=== PATIENT | male | born 1965 | race Caucasian/White ===

== ENCOUNTER 2016-09-22 00:26 | Emergency (ER) | payer MEDICARE, MEDICAID ==
[~2016-09-22] VITALS: Ht 177.8 cm; Wt 110.0 kg
[~2016-09-22 00:26] MED LIST: ADVIL200 MG OR; ALBUTEROL SUL0.083 % IN; ATROVENT I0.5 MG/VIA IN; CIPROFLOXACN500 MG PO; COMBIVENT; COMBIVENT IN; DOXYCYCL HYC100 MG PO; DUONEB INH; EQ PAIN RELIEV500 MG PO; FLEXERIL10 MG PO; FLEXIRIL; LEVAQUIN500 MG PO; LEVAQUIN750 MG PO; LIDODERM5 % EX; MEDDOSEPAK PO; MELOXICAM7.5 MG PO; MOBIC7.5 MG PO; MUCINEX PO; MULTIVITAMI1 PO; PREDNISONE10 MG PO; PREDNISONE20 MG PO; PREVACID30 M1 OR; PRILOSEC20 MG/CAP PO; PROAIR HFA IN; REGLAN10 MG OR; SUDAFED PO; ULTRAM50 M1 PO; VENTOLIN HF1 IN; VENTOLIN HFA IN; ZANAFLEX2 MG PO; ZITHROMAX500 MG PO; [UNRECOGNIZED DRUG - OTHER] OR
[2016-09-22 01:52] LABS: HEMATOCRIT 43.4 % (39.0-50.0); HEMOGLOBIN 14.4 g/dl (14.0-18.0); IMMATURE GRANULOCYTES 0.4 % (0.0-1.0); MEAN CELL VOLUME 99.8 fL CALC (80.0-100.0); MEAN CORPUSCULAR HGB 33.1 pG CALC (26.0-32.0); MEAN CORPUSCULAR HGB CONC 33.2 g/L CALC (32.0-36.0); NEUT# 5.85 thou/uL (1.82-7.42); RED BLOOD COUNT 4.35 mill/uL (4.70-6.10); RED CELL DISTRI WIDTH 13.2 % (11.5-15.5)
[2016-09-22 02:06] LABS: INFLUENZA A NONE DETECTED (NONE DETECT); INFLUENZA B NONE DETECTED (NONE DETECT)
[2016-09-22 02:08] LABS: ALBUMIN 3.7 g/dL (3.2-5.0); ALKALINE PHOSPHATASE 99 u/l (38-126); ANION GAP 16 (6-22 (CALC)); BILIRUBIN, TOTAL 0.2 mg/dL (0.0-1.4); BUN 18 mg/dL (9-20); BUN/CREATININE RATIO 17 (12-20 (CALC)); CALCIUM 9.6 mg/dL (8.4-10.2); CARBON DIOXIDE 27 mmol/l (22-30); CHLORIDE 106 mmol/l (95-108); CREATININE 1.1 mg/dL (0.7-1.3); GFR > 60 ML/MIN (>=60 (CALC)); GFR FOR AFR.AMER. > 60 ML/MIN (>=60 (CALC)); GLUCOSE 155 mg/dL (75-110); POTASSIUM 3.6 mmol/l (3.5-5.1); SGOT/AST 30 u/l (17-59); SGPT/ALT 43 u/l (21-72); SODIUM 145 mmol/l (137-146); TOTAL PROTEIN 6.4 g/dL (6.3-8.2)
[2016-09-22 02:19] LABS: MYOGLOBIN 88 ng/mL (0 - 121)
[2016-09-22 03:21] LABS: URINE BILIRUBIN - DIPSTICK NEGATIVE (NEGATIVE); URINE BLOOD DIPSTICK NEGATIVE (NEGATIVE); URINE CLARITY CLEAR; URINE COLOR YELLOW; URINE GLUCOSE - DIPSTICK NEGATIVE (NEGATIVE); URINE KETONE NEGATIVE (NEGATIVE); URINE LEUK ESTERASE NEGATIVE (NEGATIVE); URINE NITRITE - DIPSTICK NEGATIVE (Negative); URINE PROTEIN - DIPSTICK NEGATIVE (NEG-TRACE); URINE SPECIFIC GRAVITY <=1.005; URINE UROBILINOGEN - DIPSTICK 0.2 E.U./dL (0.2)
[2016-09-22 04:26] VITALS: BP 123/76
[2016-09-22] MEDS ORDERED: Levaquin PO (04:39)
== END 2016-09-22 05:00 | disposition home or self-care (01) ==
LOC: ED 00:26
PROVIDERS: Emergency Medicine
DX: J44.1 Chronic obstructive pulmonary disease with (acute) exacerbation (principal); R06.02 Shortness of breath

== ENCOUNTER 2016-12-12 21:10 | Emergency (ER) | payer MEDICARE, MEDICAID ==
[~2016-12-12] VITALS: Ht 177.8 cm; Wt 100.0 kg
[~2016-12-12 21:10] MED LIST changes: +Levaquin PO
[2016-12-12 21:56] LABS: HEMATOCRIT 44.5 % (39.0-50.0); IMMATURE GRANULOCYTES 0.7 % (0.0-1.0); MEAN CELL VOLUME 98.5 fL CALC (80.0-100.0); MEAN CORPUSCULAR HGB 33.2 pG CALC (26.0-32.0); MEAN CORPUSCULAR HGB CONC 33.7 g/L CALC (32.0-36.0); NEUT# 6.06 thou/uL (1.82-7.42); RED BLOOD COUNT 4.52 mill/uL (4.70-6.10)
[2016-12-12 22:10] LABS: ALBUMIN 4.2 g/dL (3.2-5.0); ALKALINE PHOSPHATASE 95 u/l (38-126); ANION GAP 14 (6-22 (CALC)); BILIRUBIN, TOTAL 0.3 mg/dL (0.0-1.4); BUN 18 mg/dL (9-20); BUN/CREATININE RATIO 14 (12-20 (CALC)); CALCIUM 9.2 mg/dL (8.4-10.2); CARBON DIOXIDE 27 mmol/l (22-30); CHLORIDE 103 mmol/l (95-108); CREATININE 1.3 mg/dL (0.7-1.3); GFR 58 ML/MIN (>=60 (CALC)); GFR FOR AFR.AMER. > 60 ML/MIN (>=60 (CALC)); GLUCOSE 145 mg/dL (75-110); POTASSIUM 3.7 mmol/l (3.5-5.1); SGOT/AST 33 u/l (17-59); SGPT/ALT 47 u/l (21-72); SODIUM 140 mmol/l (137-146); TOTAL PROTEIN 6.9 g/dL (6.3-8.2)
[2016-12-12 22:22] LABS: MYOGLOBIN 101 ng/mL (0 - 121)
[2016-12-12 22:29] LABS: BARBITURATES NEGATIVE (NEGATIVE); COCAINE NEGATIVE (NEGATIVE); METHADONE NEGATIVE (NEGATIVE); OXCYCODONE NEGATIVE (NEGATIVE); TETRAHYDROCANNABIONOL NEGATIVE (NEGATIVE); TRICYLIC ANTIDEPRESSANTS NEGATIVE (NEGATIVE); URINE BILIRUBIN - DIPSTICK NEGATIVE (NEGATIVE); URINE BLOOD DIPSTICK NEGATIVE (NEGATIVE); URINE CLARITY CLEAR; URINE COLOR YELLOW; URINE GLUCOSE - DIPSTICK NEGATIVE (NEGATIVE); URINE KETONE NEGATIVE (NEGATIVE); URINE LEUK ESTERASE NEGATIVE (NEGATIVE); URINE NITRITE - DIPSTICK NEGATIVE (Negative); URINE PROTEIN - DIPSTICK NEGATIVE (NEG-TRACE); URINE UROBILINOGEN - DIPSTICK 0.2 E.U./dL (0.2)
[2016-12-13 01:45] VITALS: BP 135/98
== END 2016-12-13 01:45 | disposition home or self-care (01) ==
LOC: ED 21:10
PROVIDERS: Emergency Medicine
DX: R07.89 Other chest pain (principal); I10 Essential (primary) hypertension; R06.02 Shortness of breath; J44.9 Chronic obstructive pulmonary disease, unspecified; R50.9 Fever, unspecified

== ENCOUNTER 2017-01-12 12:16 | Emergency (ER) | payer MEDICARE, MEDICAID ==
[~2017-01-12] VITALS: Ht 177.8 cm; Wt 115.0 kg
[2017-01-12] MEDS ORDERED: MELOXICAM7.5 MG PO (12:29)
[2017-01-12] MEDS ORDERED: TRAMADOL HCL50 MG PO (12:29)
[2017-01-12 12:54] LABS: HEMOGLOBIN 15.9 g/dl (14.0-18.0); IMMATURE GRANULOCYTES 0.7 % (0.0-1.0); MEAN CELL VOLUME 98.4 fL CALC (80.0-100.0); MEAN CORPUSCULAR HGB 32.6 pG CALC (26.0-32.0); MEAN CORPUSCULAR HGB CONC 33.1 g/L CALC (32.0-36.0); NEUT# 5.46 thou/uL (1.82-7.42); RED BLOOD COUNT 4.88 mill/uL (4.70-6.10)
[2017-01-12 13:04] LABS: ALBUMIN 4.4 g/dL (3.2-5.0); ALKALINE PHOSPHATASE 89 u/l (38-126); ANION GAP 16 (6-22 (CALC)); BILIRUBIN, TOTAL 0.4 mg/dL (0.0-1.4); BUN 16 mg/dL (9-20); BUN/CREATININE RATIO 14 (12-20 (CALC)); CALCIUM 9.5 mg/dL (8.4-10.2); CARBON DIOXIDE 26 mmol/l (22-30); CHLORIDE 106 mmol/l (95-108); CREATININE 1.2 mg/dL (0.7-1.3); GFR > 60 ML/MIN (>=60 (CALC)); GFR FOR AFR.AMER. > 60 ML/MIN (>=60 (CALC)); GLUCOSE 137 mg/dL (75-110); POTASSIUM 3.6 mmol/l (3.5-5.1); SGOT/AST 25 u/l (17-59); SGPT/ALT 44 u/l (21-72); SODIUM 143 mmol/l (137-146); TOTAL PROTEIN 7.5 g/dL (6.3-8.2)
[2017-01-12 13:16] LABS: MYOGLOBIN 93 ng/mL (0 - 121)
[2017-01-12 13:49] VITALS: BP 112/61
[2017-01-12] MEDS ORDERED: AFRIN 12 HOUR0.05 % (13:49)
[2017-01-12] MEDS ORDERED: PREDNISONE50 MG PO (13:49)
[2017-01-12] MEDS ORDERED: ZITHROMAX250 MG PO (13:49)
[2017-01-12] MEDS ORDERED: ALBUTEROL SUL0.083 % IN (13:49)
[2017-01-12] MEDS ORDERED: VENTOLIN HFA IN (13:49)
== END 2017-01-12 13:56 | disposition home or self-care (01) ==
LOC: ED 12:16
PROVIDERS: Emergency Medicine
DX: J44.9 Chronic obstructive pulmonary disease, unspecified (principal); F17.210 Nicotine dependence, cigarettes, uncomplicated; R06.02 Shortness of breath

== ENCOUNTER 2017-01-14 22:56 | Observation (INO) | payer MEDICARE, MEDICAID ==
[~2017-01-14] VITALS: Ht 180.3 cm; Wt 98.4 kg
[~2017-01-14 22:56] MED LIST changes: +AFRIN 12 HOUR0.05 %; +PREDNISONE50 MG PO; +TRAMADOL HCL50 MG PO; +ZITHROMAX250 MG PO
[2017-01-15 00:06] LABS: HEMATOCRIT 44.2 % (39.0-50.0); HEMOGLOBIN 14.5 g/dl (14.0-18.0); IMMATURE GRANULOCYTES 0.9 % (0.0-1.0); MEAN CELL VOLUME 99.1 fL CALC (80.0-100.0); MEAN CORPUSCULAR HGB 32.5 pG CALC (26.0-32.0); MEAN CORPUSCULAR HGB CONC 32.8 g/L CALC (32.0-36.0); NEUT# 10.14 thou/uL (1.82-7.42); RED BLOOD COUNT 4.46 mill/uL (4.70-6.10); RED CELL DISTRI WIDTH 13.2 % (11.5-15.5)
[2017-01-15 00:16] LABS: ALBUMIN 4.1 g/dL (3.2-5.0); ALKALINE PHOSPHATASE 72 u/l (38-126); ANION GAP 16 (6-22 (CALC)); BILIRUBIN, TOTAL 0.2 mg/dL (0.0-1.4); BUN 24 mg/dL (9-20); BUN/CREATININE RATIO 18 (12-20 (CALC)); CALCIUM 9.5 mg/dL (8.4-10.2); CARBON DIOXIDE 26 mmol/l (22-30); CHLORIDE 106 mmol/l (95-108); CREATININE 1.3 mg/dL (0.7-1.3); GFR 58 ML/MIN (>=60 (CALC)); GFR FOR AFR.AMER. > 60 ML/MIN (>=60 (CALC)); GLUCOSE 98 mg/dL (75-110); POTASSIUM 3.7 mmol/l (3.5-5.1); SGOT/AST 33 u/l (17-59); SGPT/ALT 46 u/l (21-72); SODIUM 144 mmol/l (137-146); TOTAL PROTEIN 6.8 g/dL (6.3-8.2)
[2017-01-15 00:28] LABS: MYOGLOBIN 222 ng/mL (0 - 121)
[2017-01-15 04:10] VITALS: BP 141/86
[2017-01-15 04:59] LABS: URINE BILIRUBIN - DIPSTICK NEGATIVE (NEGATIVE); URINE BLOOD DIPSTICK NEGATIVE (NEGATIVE); URINE CLARITY CLEAR; URINE COLOR YELLOW; URINE GLUCOSE - DIPSTICK NEGATIVE (NEGATIVE); URINE KETONE NEGATIVE (NEGATIVE); URINE LEUK ESTERASE NEGATIVE (NEGATIVE); URINE NITRITE - DIPSTICK NEGATIVE (Negative); URINE PROTEIN - DIPSTICK NEGATIVE (NEG-TRACE); URINE SPECIFIC GRAVITY <=1.005; URINE UROBILINOGEN - DIPSTICK 0.2 E.U./dL (0.2)
[2017-01-15 05:01] LABS: BARBITURATES NEGATIVE (NEGATIVE); COCAINE NEGATIVE (NEGATIVE); METHADONE NEGATIVE (NEGATIVE); OXCYCODONE NEGATIVE (NEGATIVE); TETRAHYDROCANNABIONOL NEGATIVE (NEGATIVE); TRICYLIC ANTIDEPRESSANTS NEGATIVE (NEGATIVE)
[2017-01-15 08:28] VITALS: BP 131/82
[2017-01-15 11:21] VITALS: BP 128/82
[2017-01-15] MEDS ORDERED: ANTIVERT12.5 MG PO (12:58)
== END 2017-01-15 13:51 | disposition home or self-care (01) ==
LOC: ED 22:56 → ED-I 01-15 00:40 → ED 01-15 01:34 → MS2 01-15 01:35 → ICU 01-15 01:35 → MS2 01-15 07:35
PROVIDERS: Emergency Medicine; ADMIT Internal Medicine; ATTEND Internal Medicine
DX: R55 Syncope and collapse (principal); J44.1 Chronic obstructive pulmonary disease with (acute) exacerbation; G89.29 Other chronic pain; M54.9 Dorsalgia, unspecified; Z87.891 Personal history of nicotine dependence

== ENCOUNTER 2017-04-02 22:04 | Emergency (ER) | payer MEDICARE, MEDICAID ==
[~2017-04-02] VITALS: Ht 180.3 cm; Wt 94.4 kg
[~2017-04-02 22:04] MED LIST changes: +ADVAIR HF1 IN; +ANTIVERT PO; +ANTIVERT12.5 MG PO; +FIORICET PO; +LOSARTAN POT25 MG PO
[2017-04-02] MEDS ORDERED: FLONASE AL50 MCG/ACT (22:22)
[2017-04-02] MEDS ORDERED: SYMBICORT1 AE1 IN (22:23)
[2017-04-02 22:59] LABS: HEMATOCRIT 42.9 % (39.0-50.0); IMMATURE GRANULOCYTES 0.7 % (0.0-1.0); MEAN CELL VOLUME 99.5 fL CALC (80.0-100.0); MEAN CORPUSCULAR HGB 32.5 pG CALC (26.0-32.0); MEAN CORPUSCULAR HGB CONC 32.6 g/L CALC (32.0-36.0); NEUT# 7.2 thou/uL (1.82-7.42); RED BLOOD COUNT 4.31 mill/uL (4.70-6.10); RED CELL DISTRI WIDTH 13.2 % (11.5-15.5)
--- NOTE | 2017-04-02 23:01 | NUR ---
BREATHING TREATMENT GIVEN. BREATHING TECH. FOR GOOD DEPOSITION TO THE LUNGS.
[2017-04-02 23:22] LABS: ALBUMIN 3.7 g/dL (3.2-5.0); ALKALINE PHOSPHATASE 81 u/l (38-126); ANION GAP 14 (6-22 (CALC)); BILIRUBIN, TOTAL 0.4 mg/dL (0.0-1.4); BUN 17 mg/dL (9-20); BUN/CREATININE RATIO 17 (12-20 (CALC)); CALCIUM 9.2 mg/dL (8.4-10.2); CARBON DIOXIDE 26 mmol/l (22-30); CHLORIDE 107 mmol/l (95-108); GFR > 60 ML/MIN (>=60 (CALC)); GFR FOR AFR.AMER. > 60 ML/MIN (>=60 (CALC)); GLUCOSE 175 mg/dL (75-110); POTASSIUM 3.8 mmol/l (3.5-5.1); SGOT/AST 28 u/l (17-59); SGPT/ALT 36 u/l (21-72); SODIUM 144 mmol/l (137-146); TOTAL PROTEIN 6.2 g/dL (6.3-8.2)
[2017-04-02 23:33] LABS: MYOGLOBIN 72 ng/mL (0 - 121)
[2017-04-03] MEDS ORDERED: MEDDOSEPAK PO (00:07)
[2017-04-03] MEDS ORDERED: ZITHROMAX250 MG PO (00:07)
[2017-04-03] MEDS ORDERED: VENTOLIN HFA IN (00:07)
[2017-04-03 00:13] VITALS: BP 113/54
== END 2017-04-03 00:20 | disposition home or self-care (01) ==
LOC: ED 22:04
PROVIDERS: Emergency Medicine
DX: J44.1 Chronic obstructive pulmonary disease with (acute) exacerbation (principal); R06.02 Shortness of breath

== ENCOUNTER 2017-04-21 22:03 | Observation (INO) | payer MEDICARE ==
[~2017-04-21] VITALS: Ht 177.8 cm; Wt 93.0 kg
[~2017-04-21 22:03] MED LIST changes: +FLONASE AL50 MCG/ACT; +SYMBICORT1 AE1 IN
[2017-04-21 23:08] LABS: HEMATOCRIT 41.6 % (39.0-50.0); HEMOGLOBIN 13.7 g/dl (14.0-18.0); IMMATURE GRANULOCYTES 0.5 % (0.0-1.0); MEAN CELL VOLUME 99.8 fL CALC (80.0-100.0); MEAN CORPUSCULAR HGB 32.9 pG CALC (26.0-32.0); MEAN CORPUSCULAR HGB CONC 32.9 g/L CALC (32.0-36.0); NEUT# 5.9 thou/uL (1.82-7.42); RED BLOOD COUNT 4.17 mill/uL (4.70-6.10); RED CELL DISTRI WIDTH 13.3 % (11.5-15.5)
[2017-04-21 23:27] LABS: ACT PARTIAL THROMBO TIME 25.7 SECONDS (20.0-32.5); ALBUMIN 3.7 g/dL (3.2-5.0); ALKALINE PHOSPHATASE 83 u/l (38-126); ANION GAP 13 (6-22 (CALC)); BILIRUBIN, TOTAL 0.3 mg/dL (0.0-1.4); BUN 15 mg/dL (9-20); BUN/CREATININE RATIO 13 (12-20 (CALC)); CALCIUM 9.3 mg/dL (8.4-10.2); CARBON DIOXIDE 24 mmol/l (22-30); CHLORIDE 111 mmol/l (95-108); CREATININE 1.2 mg/dL (0.7-1.3); GFR > 60 ML/MIN (>=60 (CALC)); GFR FOR AFR.AMER. > 60 ML/MIN (>=60 (CALC)); GLUCOSE 139 mg/dL (75-110); POTASSIUM 4.1 mmol/l (3.5-5.1); PROTHROMBIN TIME 10.5 SECONDS (9.0-12.5); SGOT/AST 28 u/l (17-59); SGPT/ALT 43 u/l (21-72); SODIUM 144 mmol/l (137-146)
[2017-04-21 23:40] LABS: MYOGLOBIN 86 ng/mL (0 - 121)
[2017-04-21 23:57] LABS: URINE BILIRUBIN - DIPSTICK NEGATIVE (NEGATIVE); URINE BLOOD DIPSTICK NEGATIVE (NEGATIVE); URINE COLOR YELLOW; URINE GLUCOSE - DIPSTICK NEGATIVE (NEGATIVE); URINE KETONE NEGATIVE (NEGATIVE); URINE LEUK ESTERASE NEGATIVE (NEGATIVE); URINE NITRITE - DIPSTICK NEGATIVE (Negative); URINE PH 6.5 (4.5-8.0); URINE PROTEIN - DIPSTICK NEGATIVE (NEG-TRACE); URINE SPECIFIC GRAVITY <=1.005; URINE UROBILINOGEN - DIPSTICK 0.2 E.U./dL (0.2)
[2017-04-22 00:06] LABS: URINE CLARITY CLEAR
[2017-04-22 00:55] VITALS: BP 123/73
[2017-04-22 00:57] LABS: BARBITURATES NEGATIVE (NEGATIVE); COCAINE NEGATIVE (NEGATIVE); METHADONE NEGATIVE (NEGATIVE); OXCYCODONE NEGATIVE (NEGATIVE); TETRAHYDROCANNABIONOL NEGATIVE (NEGATIVE); TRICYLIC ANTIDEPRESSANTS NEGATIVE (NEGATIVE)
[2017-04-22 04:31] VITALS: BP 120/61
[2017-04-22 07:03] LABS: CHOLESTEROL HDL RATIO 3.5 (<4.4 (CALC))
[2017-04-22 07:59] VITALS: BP 107/50
[2017-04-22] MEDS ORDERED: PROTONIX20 M1 PO (10:31)
== END 2017-04-22 10:55 | disposition home or self-care (01) ==
LOC: ED 22:03 → ED-I 04-22 00:17 → ED 04-22 00:32 → MS2 04-22 00:33
PROVIDERS: Emergency Medicine; ADMIT Internal Medicine; ATTEND Internal Medicine
DX: R07.9 Chest pain, unspecified (principal); J44.9 Chronic obstructive pulmonary disease, unspecified; M47.817 Spondylosis without myelopathy or radiculopathy, lumbosacral region; K21.9 Gastro-esophageal reflux disease without esophagitis; R06.02 Shortness of breath; Z87.891 Personal history of nicotine dependence

== ENCOUNTER 2017-04-26 17:47 | Emergency (ER) | payer MEDICARE ==
[~2017-04-26] VITALS: Ht 177.8 cm; Wt 90.0 kg
[~2017-04-26 17:47] MED LIST changes: +PROTONIX20 M1 PO
[2017-04-26 18:31] LABS: HEMATOCRIT 43.8 % (39.0-50.0); HEMOGLOBIN 14.5 g/dl (14.0-18.0); IMMATURE GRANULOCYTES 0.3 % (0.0-1.0); MEAN CELL VOLUME 99.5 fL CALC (80.0-100.0); MEAN CORPUSCULAR HGB CONC 33.1 g/L CALC (32.0-36.0); NEUT# 6.63 thou/uL (1.82-7.42); RED BLOOD COUNT 4.4 mill/uL (4.70-6.10); RED CELL DISTRI WIDTH 13.3 % (11.5-15.5)
--- NOTE | 2017-04-26 18:36 | NUR ---
RESPIRATORY TREATMENT GIVEN. BREATHING TECH. FOR GOOD DEPOSITION TO THE LUNGS.
[2017-04-26 18:43] LABS: ALBUMIN 4.2 g/dL (3.2-5.0); ALKALINE PHOSPHATASE 106 u/l (38-126); ANION GAP 16 (6-22 (CALC)); BILIRUBIN, TOTAL 0.4 mg/dL (0.0-1.4); BUN 18 mg/dL (9-20); BUN/CREATININE RATIO 14 (12-20 (CALC)); CALCIUM 9.4 mg/dL (8.4-10.2); CARBON DIOXIDE 27 mmol/l (22-30); CHLORIDE 108 mmol/l (95-108); CREATININE 1.3 mg/dL (0.7-1.3); GFR 58 ML/MIN (>=60 (CALC)); GFR FOR AFR.AMER. > 60 ML/MIN (>=60 (CALC)); GLUCOSE 150 mg/dL (75-110); LIPASE 150 u/l (23-300); POTASSIUM 3.5 mmol/l (3.5-5.1); SGOT/AST 34 u/l (17-59); SGPT/ALT 53 u/l (21-72); SODIUM 147 mmol/l (137-146); TOTAL PROTEIN 6.8 g/dL (6.3-8.2)
[2017-04-26 19:16] VITALS: BP 146/73
== END 2017-04-26 19:20 | disposition home or self-care (01) ==
LOC: ED 17:47
PROVIDERS: Emergency Medicine
DX: R07.89 Other chest pain (principal); J44.9 Chronic obstructive pulmonary disease, unspecified

== ENCOUNTER 2017-05-01 19:38 | Emergency (ER) | payer MEDICARE ==
[~2017-05-01] VITALS: Ht 177.8 cm; Wt 90.0 kg
[2017-05-01 20:26] LABS: INFLUENZA A NONE DETECTED (NONE DETECT); INFLUENZA B NONE DETECTED (NONE DETECT)
[2017-05-01] MEDS ORDERED: CLARITIN10 M1 PO (21:03)
--- NOTE | 2017-05-01 21:26 | NUR ---
BREATHING TREATMENT GIVEN. BREATHING TECH. FOR GOOD DEPOSITION TO THE LUNGS.
[2017-05-01 21:41] VITALS: BP 144/88
== END 2017-05-01 21:30 | disposition home or self-care (01) ==
LOC: ED 19:38
PROVIDERS: Emergency Medicine
DX: J32.9 Chronic sinusitis, unspecified (principal); R06.02 Shortness of breath; R05 Cough; F17.220 Nicotine dependence, chewing tobacco, uncomplicated; R11.0 Nausea

== ENCOUNTER 2017-05-11 21:47 | Emergency (ER) | payer MEDICARE ==
[~2017-05-11] VITALS: Ht 177.8 cm; Wt 94.4 kg
[~2017-05-11 21:47] MED LIST changes: +CLARITIN10 M1 PO
[2017-05-11] MEDS ORDERED: STIOLTO RESPIMA1 AER IN (22:06)
[2017-05-11 23:03] LABS: URINE BILIRUBIN - DIPSTICK NEGATIVE (NEGATIVE); URINE BLOOD DIPSTICK NEGATIVE (NEGATIVE); URINE COLOR YELLOW; URINE KETONE NEGATIVE (NEGATIVE); URINE LEUK ESTERASE NEGATIVE (NEGATIVE); URINE NITRITE - DIPSTICK NEGATIVE (Negative); URINE PROTEIN - DIPSTICK NEGATIVE (NEG-TRACE); URINE UROBILINOGEN - DIPSTICK 0.2 E.U./dL (0.2)
[2017-05-11 23:04] LABS: URINE CLARITY CLEAR; URINE GLUCOSE - DIPSTICK NEGATIVE (NEGATIVE)
[2017-05-11 23:05] LABS: HEMATOCRIT 45.8 % (39.0-50.0); HEMOGLOBIN 14.9 g/dl (14.0-18.0); IMMATURE GRANULOCYTES 0.6 % (0.0-1.0); MEAN CELL VOLUME 100.4 fL CALC (80.0-100.0); MEAN CORPUSCULAR HGB 32.7 pG CALC (26.0-32.0); MEAN CORPUSCULAR HGB CONC 32.5 g/L CALC (32.0-36.0); NEUT# 8.14 thou/uL (1.82-7.42); RED BLOOD COUNT 4.56 mill/uL (4.70-6.10); RED CELL DISTRI WIDTH 13.2 % (11.5-15.5)
[2017-05-11 23:06] LABS: BARBITURATES NEGATIVE (NEGATIVE); COCAINE NEGATIVE (NEGATIVE); METHADONE NEGATIVE (NEGATIVE); OXCYCODONE NEGATIVE (NEGATIVE); TETRAHYDROCANNABIONOL NEGATIVE (NEGATIVE); TRICYLIC ANTIDEPRESSANTS NEGATIVE (NEGATIVE)
[2017-05-11 23:15] LABS: ALBUMIN 4.3 g/dL (3.2-5.0); ALKALINE PHOSPHATASE 101 u/l (38-126); ANION GAP 18 (6-22 (CALC)); BILIRUBIN, TOTAL 0.2 mg/dL (0.0-1.4); BUN 15 mg/dL (9-20); BUN/CREATININE RATIO 14 (12-20 (CALC)); CALCIUM 9.4 mg/dL (8.4-10.2); CARBON DIOXIDE 27 mmol/l (22-30); CHLORIDE 108 mmol/l (95-108); CREATININE 1.1 mg/dL (0.7-1.3); GFR > 60 ML/MIN (>=60 (CALC)); GFR FOR AFR.AMER. > 60 ML/MIN (>=60 (CALC)); GLUCOSE 127 mg/dL (75-110); POTASSIUM 3.9 mmol/l (3.5-5.1); SGOT/AST 26 u/l (17-59); SGPT/ALT 45 u/l (21-72); SODIUM 148 mmol/l (137-146); TOTAL PROTEIN 7.1 g/dL (6.3-8.2)
[2017-05-11 23:27] LABS: MYOGLOBIN 69 ng/mL (0 - 121)
[2017-05-11 23:55] VITALS: BP 141/83
== END 2017-05-11 23:55 | disposition home or self-care (01) ==
LOC: ED 21:47
PROVIDERS: Emergency Medicine
DX: J32.9 Chronic sinusitis, unspecified (principal); R06.02 Shortness of breath; J44.9 Chronic obstructive pulmonary disease, unspecified

== ENCOUNTER 2017-05-20 15:47 | Emergency (ER) | payer MEDICARE ==
[~2017-05-20] VITALS: Ht 177.8 cm; Wt 93.6 kg
[~2017-05-20 15:47] MED LIST changes: +STIOLTO RESPIMA1 AER IN
[2017-05-20] MEDS ORDERED: DOXYCYCL HYC100 MG PO (16:05)
[2017-05-20] MEDS ORDERED: HYDROCO/APAP1 TA9 PO (16:05)
[2017-05-20 16:40] LABS: HEMATOCRIT 44.1 % (39.0-50.0); HEMOGLOBIN 14.2 g/dl (14.0-18.0); IMMATURE GRANULOCYTES 0.6 % (0.0-1.0); MEAN CELL VOLUME 101.1 fL CALC (80.0-100.0); MEAN CORPUSCULAR HGB 32.6 pG CALC (26.0-32.0); MEAN CORPUSCULAR HGB CONC 32.2 g/L CALC (32.0-36.0); NEUT# 7.02 thou/uL (1.82-7.42); RED BLOOD COUNT 4.36 mill/uL (4.70-6.10); RED CELL DISTRI WIDTH 13.2 % (11.5-15.5)
[2017-05-20 17:23] LABS: ANION GAP 19 (6-22 (CALC)); BUN 16 mg/dL (9-20); BUN/CREATININE RATIO 15 (12-20 (CALC)); CALCIUM 9.9 mg/dL (8.4-10.2); CARBON DIOXIDE 24 mmol/l (22-30); CHLORIDE 107 mmol/l (95-108); CREATININE 1.1 mg/dL (0.7-1.3); GFR > 60 ML/MIN (>=60 (CALC)); GFR FOR AFR.AMER. > 60 ML/MIN (>=60 (CALC)); GLUCOSE 113 mg/dL (75-110); POTASSIUM 3.9 mmol/l (3.5-5.1); SODIUM 147 mmol/l (137-146)
[2017-05-20 17:46] VITALS: BP 135/79
== END 2017-05-20 17:51 | disposition home or self-care (01) ==
LOC: ED 15:47
PROVIDERS: Family Medicine
DX: R06.02 Shortness of breath (principal); J44.9 Chronic obstructive pulmonary disease, unspecified

== ENCOUNTER 2017-05-21 19:18 | Emergency (ER) | payer MEDICARE ==
[~2017-05-21] VITALS: Ht 177.8 cm; Wt 93.0 kg
[~2017-05-21 19:18] MED LIST changes: +HYDROCO/APAP1 TA9 PO
[2017-05-21 19:24] VITALS: BP 147/98
== END 2017-05-21 19:31 | disposition left against medical advice (07) ==
LOC: ED 19:18 → LWOBS 19:31 → ED 19:31
DX: Z91.19 Patient's noncompliance with other medical treatment and regimen (principal)

== ENCOUNTER 2017-06-11 19:39 | Emergency (ER) | payer MEDICARE ==
[~2017-06-11] VITALS: Ht 177.8 cm; Wt 93.6 kg
[2017-06-11] MEDS ORDERED: LEVOCETIRIZINE D5 MG PO (19:54)
[2017-06-11] MEDS ORDERED: PROAIR HFA108 MCG/AC IN (19:55)
[2017-06-11] MEDS ORDERED: SUDAFED PO (19:56)
[2017-06-11 20:36] LABS: HEMATOCRIT 45.3 % (39.0-50.0); IMMATURE GRANULOCYTES 0.5 % (0.0-1.0); MEAN CELL VOLUME 100.9 fL CALC (80.0-100.0); MEAN CORPUSCULAR HGB 33.4 pG CALC (26.0-32.0); MEAN CORPUSCULAR HGB CONC 33.1 g/L CALC (32.0-36.0); NEUT# 6.64 thou/uL (1.82-7.42); RED BLOOD COUNT 4.49 mill/uL (4.70-6.10); RED CELL DISTRI WIDTH 12.8 % (11.5-15.5)
[2017-06-11 20:54] LABS: ALBUMIN 4.2 g/dL (3.2-5.0); ALKALINE PHOSPHATASE 127 u/l (38-126); ANION GAP 16 (6-22 (CALC)); BILIRUBIN, TOTAL 0.3 mg/dL (0.0-1.4); BUN 22 mg/dL (9-20); BUN/CREATININE RATIO 17 (12-20 (CALC)); CALCIUM 10.4 mg/dL (8.4-10.2); CARBON DIOXIDE 28 mmol/l (22-30); CHLORIDE 106 mmol/l (95-108); CREATININE 1.3 mg/dL (0.7-1.3); GFR 58 ML/MIN (>=60 (CALC)); GFR FOR AFR.AMER. > 60 ML/MIN (>=60 (CALC)); GLUCOSE 123 mg/dL (75-110); POTASSIUM 4.2 mmol/l (3.5-5.1); SGOT/AST 28 u/l (17-59); SGPT/ALT 33 u/l (21-72); SODIUM 145 mmol/l (137-146); TOTAL PROTEIN 6.4 g/dL (6.3-8.2)
[2017-06-11 21:05] LABS: MYOGLOBIN 94 ng/mL (0 - 121)
[2017-06-11 21:28] VITALS: BP 139/74
== END 2017-06-11 21:29 | disposition home or self-care (01) ==
LOC: ED 19:39
PROVIDERS: Emergency Medicine
DX: J32.9 Chronic sinusitis, unspecified (principal); F41.9 Anxiety disorder, unspecified; R06.02 Shortness of breath; Z98.890 Other specified postprocedural states

== ENCOUNTER 2017-06-26 20:54 | Emergency (ER) | payer MEDICARE, MEDICAID ==
[~2017-06-26] VITALS: Ht 177.8 cm; Wt 94.4 kg
[~2017-06-26 20:54] MED LIST changes: +LEVOCETIRIZINE D5 MG PO; +PROAIR HFA108 MCG/AC IN
[2017-06-26] MEDS ORDERED: AMITRIPTYLIN25 MG PO (21:23)
[2017-06-26] MEDS ORDERED: MELOXICAM7.5 MG PO (21:23)
[2017-06-26 21:30] LABS: HEMATOCRIT 46.5 % (39.0-50.0); HEMOGLOBIN 15.1 g/dl (14.0-18.0); IMMATURE GRANULOCYTES 0.9 % (0.0-1.0); MEAN CELL VOLUME 100.4 fL CALC (80.0-100.0); MEAN CORPUSCULAR HGB 32.6 pG CALC (26.0-32.0); MEAN CORPUSCULAR HGB CONC 32.5 g/L CALC (32.0-36.0); NEUT# 11.18 thou/uL (1.82-7.42); RED BLOOD COUNT 4.63 mill/uL (4.70-6.10); RED CELL DISTRI WIDTH 13.2 % (11.5-15.5)
[2017-06-26 21:46] LABS: ANION GAP 16 (6-22 (CALC)); BUN 13 mg/dL (9-20); BUN/CREATININE RATIO 11 (12-20 (CALC)); CALCIUM 9.5 mg/dL (8.4-10.2); CARBON DIOXIDE 24 mmol/l (22-30); CHLORIDE 106 mmol/l (95-108); CREATININE 1.2 mg/dL (0.7-1.3); GFR > 60 ML/MIN (>=60 (CALC)); GFR FOR AFR.AMER. > 60 ML/MIN (>=60 (CALC)); GLUCOSE 127 mg/dL (75-110); POTASSIUM 3.9 mmol/l (3.5-5.1); SODIUM 142 mmol/l (137-146)
[2017-06-26 23:46] VITALS: BP 136/77
== END 2017-06-26 23:52 | disposition home or self-care (01) ==
LOC: ED 20:54
PROVIDERS: Family Medicine
DX: F41.9 Anxiety disorder, unspecified (principal); R06.02 Shortness of breath; R53.1 Weakness; F17.290 Nicotine dependence, other tobacco product, uncomplicated

== ENCOUNTER 2017-07-18 13:33 | Emergency (ER) | payer MEDICARE, MEDICAID ==
[~2017-07-18] VITALS: Ht 177.8 cm; Wt 91.6 kg
[~2017-07-18 13:33] MED LIST changes: +AMITRIPTYLIN25 MG PO
--- NOTE | 2017-07-18 13:43 | NUR ---
PT AMBULATED TO ER ROOM 9 WITH STEADY GAIT. CHANGED TO GOWN.
[2017-07-18] MEDS ORDERED: LOSARTAN POT25 MG PO (14:06)
[2017-07-18] MEDS ORDERED: TRAMADOL HCL50 MG PO (14:06)
[2017-07-18 14:07] LABS: HEMATOCRIT 44.6 % (39.0-50.0); HEMOGLOBIN 14.7 g/dl (14.0-18.0); IMMATURE GRANULOCYTES 0.5 % (0.0-1.0); MEAN CELL VOLUME 99.8 fL CALC (80.0-100.0); MEAN CORPUSCULAR HGB 32.9 pG CALC (26.0-32.0); NEUT# 7.33 thou/uL (1.82-7.42); RED BLOOD COUNT 4.47 mill/uL (4.70-6.10); RED CELL DISTRI WIDTH 13.2 % (11.5-15.5)
[2017-07-18] MEDS ORDERED: PRIMIDONE50 MG PO (14:07)
[2017-07-18] MEDS ORDERED: MELOXICAM7.5 MG PO (14:08)
[2017-07-18] MEDS ORDERED: RANITIDINE150 M1 PO (14:08)
[2017-07-18] MEDS ORDERED: STIOLTO RESPIMA1 AER IN (14:09)
[2017-07-18] MEDS ORDERED: VENTOLIN HFA IN (14:10)
[2017-07-18] MEDS ORDERED: SYMBICORT1 AE1 IN (14:10)
[2017-07-18 14:30] LABS: ANION GAP 16 (6-22 (CALC)); BUN 15 mg/dL (9-20); BUN/CREATININE RATIO 14 (12-20 (CALC)); CARBON DIOXIDE 27 mmol/l (22-30); CHLORIDE 107 mmol/l (95-108); CREATININE 1.1 mg/dL (0.7-1.3); GFR > 60 ML/MIN (>=60 (CALC)); GFR FOR AFR.AMER. > 60 ML/MIN (>=60 (CALC)); SODIUM 146 mmol/l (137-146)
--- NOTE | 2017-07-18 14:35 | NUR ---
PATIENT RESTING ON STRETCHER WITH RESPIRATIONS EVEN AND UNLABORED. LIGTHS DIMMED FOR COMFORT, CALL LIGTH WITHIN REACH, WILL CONTINUE TO MONITOR.
--- NOTE | 2017-07-18 15:25 | NUR ---
PATIENT REPORTS FEELING WARM INSIDE TEMP CHECKED 97.8, ACCU CHECK 82. PATIENT IS SHIVERING, REPORTS HAVING A HISTORY OF AXIETY. STATES " WHEN I WAS HERE A FEW WEEKS AGO, THEY GAVE ME SOMETHING AND THAT HELPED." INFORMED. AWAITING ORDERS.
--- NOTE | 2017-07-18 15:45 | NUR ---
PATIENT AMBULATES TO BATHROOM WITH STEADY GAIT, STANDBY ASSIST.
--- NOTE | 2017-07-18 16:45 | NUR ---
PATIENT RESTING ON STRETCHER, ALERT AND ORIENTED. TREMMORS TO BILATERAL HAND AT BASELINE FOR PATIENT. PATIENT INFORMED OF ADMIT, STATES "I DONT WANT TO STAY OVERNIGHT, I HAVE A SLEEP STUDY TOMORROW AND DONT WANT TO MISS IT. I'VE BEEN WAITING FOR IT 3 MONTHS." MD INFORMED OF PATIENT'S WISHES. PATIENT ENCOURAGED TO STAY FOR FURTHER EVALUARTION AND OBSERVATION.
[2017-07-18 16:48] VITALS: BP 130/79
--- NOTE | 2017-07-18 16:48 | NUR ---
Patient decides to leave AMA. Multiple attempts made to ecourage patient to remain here for continued treatment. Explained to patient all risks of leaving against medical advice including . Pt verbalized understanding of all risks. Pt also encouraged to return to [facility] at any time, especially if symptoms continue or become worse. Pt verbalized understanding. REFUSED WHEELCHAIR OUT OF DEPARTMENT. AMBULATES WITH STEADY GAIT ACCOMPANIED BY SO. INFORMED TO COME BACK IF SYMPTOMS RETURNS.
== END 2017-07-18 16:48 | disposition left against medical advice (07) ==
LOC: ED 13:33 → ED-I 14:38 → ED 14:55 → MS2 14:56 → ED 14:56
PROVIDERS: Family Medicine
DX: R07.9 Chest pain, unspecified (principal); R55 Syncope and collapse; R51 Headache; Z91.19 Patient's noncompliance with other medical treatment and regimen

== ENCOUNTER 2017-07-20 03:18 | Emergency (ER) | payer MEDICARE, MEDICAID ==
[~2017-07-20] VITALS: Ht 177.8 cm; Wt 89.2 kg
[~2017-07-20 03:18] MED LIST changes: +PRIMIDONE50 MG PO; +RANITIDINE150 M1 PO
--- NOTE | 2017-07-20 03:56 | NUR ---
BREATHING TREATMENT GIVEN. BREATHING TECH. FOR GOOD DEPOSITION TO THE LUNGS AND FOR SOB.
[2017-07-20 04:37] LABS: HEMATOCRIT 46.1 % (39.0-50.0); HEMOGLOBIN 15.2 g/dl (14.0-18.0); IMMATURE GRANULOCYTES 0.8 % (0.0-1.0); NEUT# 5.29 thou/uL (1.82-7.42); RED BLOOD COUNT 4.61 mill/uL (4.70-6.10); RED CELL DISTRI WIDTH 13.2 % (11.5-15.5)
[2017-07-20 04:49] LABS: ALKALINE PHOSPHATASE 106 u/l (38-126); ANION GAP 16 (6-22 (CALC)); BILIRUBIN, TOTAL 0.2 mg/dL (0.0-1.4); BUN 19 mg/dL (9-20); BUN/CREATININE RATIO 17 (12-20 (CALC)); CARBON DIOXIDE 25 mmol/l (22-30); CHLORIDE 107 mmol/l (95-108); CREATININE 1.1 mg/dL (0.7-1.3); GFR > 60 ML/MIN (>=60 (CALC)); GFR FOR AFR.AMER. > 60 ML/MIN (>=60 (CALC)); POTASSIUM 3.4 mmol/l (3.5-5.1); SGOT/AST 27 u/l (17-59); SGPT/ALT 32 u/l (21-72); SODIUM 144 mmol/l (137-146); TOTAL PROTEIN 6.5 g/dL (6.3-8.2)
[2017-07-20 05:01] LABS: MYOGLOBIN 44 ng/mL (0 - 121)
[2017-07-20 05:34] VITALS: BP 153/95
== END 2017-07-20 05:36 | disposition home or self-care (01) ==
LOC: ED 03:18
PROVIDERS: Emergency Medicine
DX: R06.00 Dyspnea, unspecified (principal); F41.9 Anxiety disorder, unspecified; J44.9 Chronic obstructive pulmonary disease, unspecified; F17.290 Nicotine dependence, other tobacco product, uncomplicated

== ENCOUNTER 2017-12-01 22:46 | Emergency (ER) | payer MEDICARE ==
[~2017-12-01] VITALS: Ht 177.8 cm; Wt 93.8 kg
[~2017-12-01 22:46] MED LIST changes: +CLONAZEP ODT0.5 MG PO; +TOPIRAMATE ER50 MG PO; +VENLAFAXINE150 M1 PO; +VITAMIN B-12500 MCG PO; +XYZAL ALLERGY 245 MG PO; +ZPAK PO
[2017-12-01] MEDS ORDERED: DOXYCYCL HYC100 MG PO (23:05)
[2017-12-01 23:44] LABS: HEMATOCRIT 43.3 % (39.0-50.0); HEMOGLOBIN 14.1 g/dl (14.0-18.0); IMMATURE GRANULOCYTES 0.7 % (0.0-1.0); MEAN CELL VOLUME 99.5 fL CALC (80.0-100.0); MEAN CORPUSCULAR HGB 32.4 pG CALC (26.0-32.0); MEAN CORPUSCULAR HGB CONC 32.6 g/L CALC (32.0-36.0); NEUT# 4.89 thou/uL (1.82-7.42); RED BLOOD COUNT 4.35 mill/uL (4.70-6.10); RED CELL DISTRI WIDTH 13.6 % (11.5-15.5)
[2017-12-01 23:52] LABS: ALBUMIN 3.8 g/dL (3.2-5.0); ALKALINE PHOSPHATASE 104 u/l (38-126); ANION GAP 13 (6-22 (CALC)); BILIRUBIN, TOTAL 0.3 mg/dL (0.0-1.4); BUN 16 mg/dL (9-20); BUN/CREATININE RATIO 12 (12-20 (CALC)); CARBON DIOXIDE 22 mmol/l (22-30); CHLORIDE 111 mmol/l (95-108); CREATININE 1.3 mg/dL (0.7-1.3); GFR 58 ML/MIN (>=60 (CALC)); GFR FOR AFR.AMER. > 60 ML/MIN (>=60 (CALC)); SGOT/AST 29 u/l (17-59); SGPT/ALT 40 u/l (21-72); SODIUM 142 mmol/l (137-146); TOTAL PROTEIN 6.7 g/dL (6.3-8.2)
[2017-12-01 23:57] LABS: INFLUENZA A NONE DETECTED (NONE DETECT); INFLUENZA B NONE DETECTED (NONE DETECT)
[2017-12-02] MEDS ORDERED: CLARITHROMYC500 M2 PO (00:01)
[2017-12-02] MEDS ORDERED: PREVACID30 M3 PO (00:01)
[2017-12-02 00:09] VITALS: BP 122/71
== END 2017-12-02 00:14 | disposition home or self-care (01) ==
LOC: ED 22:46
PROVIDERS: Emergency Medicine
DX: J02.0 Streptococcal pharyngitis (principal); K29.70 Gastritis, unspecified, without bleeding; B96.81 Helicobacter pylori [H. pylori] as the cause of diseases classified elsewhere; J44.9 Chronic obstructive pulmonary disease, unspecified; F17.220 Nicotine dependence, chewing tobacco, uncomplicated

== ENCOUNTER 2017-12-05 19:30 | Emergency (ER) | payer MEDICARE ==
[~2017-12-05] VITALS: Ht 177.8 cm; Wt 91.0 kg
[~2017-12-05 19:30] MED LIST changes: +CLARITHROMYC500 M2 PO; +PREVACID30 M3 PO
[2017-12-05 20:38] LABS: HEMATOCRIT 45.2 % (39.0-50.0); HEMOGLOBIN 14.7 g/dl (14.0-18.0); IMMATURE GRANULOCYTES 0.5 % (0.0-1.0); MEAN CELL VOLUME 98.7 fL CALC (80.0-100.0); MEAN CORPUSCULAR HGB 32.1 pG CALC (26.0-32.0); MEAN CORPUSCULAR HGB CONC 32.5 g/L CALC (32.0-36.0); NEUT# 6.59 thou/uL (1.82-7.42); RED BLOOD COUNT 4.58 mill/uL (4.70-6.10); RED CELL DISTRI WIDTH 13.6 % (11.5-15.5); URINE BILIRUBIN - DIPSTICK NEGATIVE (NEGATIVE); URINE BLOOD DIPSTICK TRACE-INTACT (NEGATIVE); URINE COLOR YELLOW; URINE GLUCOSE - DIPSTICK NEGATIVE (NEGATIVE); URINE KETONE NEGATIVE (NEGATIVE); URINE LEUK ESTERASE NEGATIVE (NEGATIVE); URINE NITRITE - DIPSTICK NEGATIVE (Negative); URINE PROTEIN - DIPSTICK NEGATIVE (NEG-TRACE); URINE SPECIFIC GRAVITY >=1.030; URINE UROBILINOGEN - DIPSTICK 0.2 E.U./dL (0.2)
[2017-12-05 20:40] LABS: URINE CLARITY CLEAR
[2017-12-05 20:57] LABS: ALBUMIN 4.1 g/dL (3.2-5.0); ALKALINE PHOSPHATASE 113 u/l (38-126); AMYLASE 58 u/l (30-110); ANION GAP 14 (6-22 (CALC)); BILIRUBIN, TOTAL 0.4 mg/dL (0.0-1.4); BUN 20 mg/dL (9-20); BUN/CREATININE RATIO 17 (12-20 (CALC)); CARBON DIOXIDE 28 mmol/l (22-30); CHLORIDE 107 mmol/l (95-108); CREATININE 1.2 mg/dL (0.7-1.3); GFR > 60 ML/MIN (>=60 (CALC)); GFR FOR AFR.AMER. > 60 ML/MIN (>=60 (CALC)); LIPASE 190 u/l (23-300); POTASSIUM 3.8 mmol/l (3.5-5.1); SGOT/AST 32 u/l (17-59); SGPT/ALT 49 u/l (21-72); SODIUM 144 mmol/l (137-146); TOTAL PROTEIN 7.2 g/dL (6.3-8.2)
[2017-12-05 21:29] VITALS: BP 128/71
== END 2017-12-05 21:28 | disposition home or self-care (01) ==
LOC: ED 19:30
PROVIDERS: Family Medicine
DX: R10.84 Generalized abdominal pain (principal); R10.13 Epigastric pain; K59.00 Constipation, unspecified; J44.9 Chronic obstructive pulmonary disease, unspecified; F17.220 Nicotine dependence, chewing tobacco, uncomplicated

== ENCOUNTER 2017-12-11 20:21 | Emergency (ER) | payer MEDICARE ==
[~2017-12-11] VITALS: Ht 177.8 cm; Wt 91.0 kg
[2017-12-11 21:35] LABS: URINE BILIRUBIN - DIPSTICK NEGATIVE (NEGATIVE); URINE BLOOD DIPSTICK NEGATIVE (NEGATIVE); URINE COLOR YELLOW; URINE GLUCOSE - DIPSTICK NEGATIVE (NEGATIVE); URINE KETONE NEGATIVE (NEGATIVE); URINE LEUK ESTERASE NEGATIVE (NEGATIVE); URINE NITRITE - DIPSTICK NEGATIVE (Negative); URINE PH 5.5 (4.5-8.0); URINE PROTEIN - DIPSTICK NEGATIVE (NEG-TRACE); URINE SPECIFIC GRAVITY <=1.005; URINE UROBILINOGEN - DIPSTICK 0.2 E.U./dL (0.2)
[2017-12-11 21:36] LABS: IMMATURE GRANULOCYTES 0.4 % (0.0-1.0); MEAN CELL VOLUME 98.3 fL CALC (80.0-100.0); MEAN CORPUSCULAR HGB 32.1 pG CALC (26.0-32.0); MEAN CORPUSCULAR HGB CONC 32.6 g/L CALC (32.0-36.0); NEUT# 6.02 thou/uL (1.82-7.42); RED BLOOD COUNT 4.68 mill/uL (4.70-6.10); RED CELL DISTRI WIDTH 13.3 % (11.5-15.5)
[2017-12-11 21:39] LABS: URINE CLARITY CLEAR
[2017-12-11 22:01] LABS: ALBUMIN 3.9 g/dL (3.2-5.0); ALKALINE PHOSPHATASE 99 u/l (38-126); AMYLASE 62 u/l (30-110); ANION GAP 13 (6-22 (CALC)); BILIRUBIN, TOTAL 0.3 mg/dL (0.0-1.4); BUN 18 mg/dL (9-20); BUN/CREATININE RATIO 15 (12-20 (CALC)); CARBON DIOXIDE 27 mmol/l (22-30); CHLORIDE 106 mmol/l (95-108); CREATININE 1.2 mg/dL (0.7-1.3); GFR > 60 ML/MIN (>=60 (CALC)); GFR FOR AFR.AMER. > 60 ML/MIN (>=60 (CALC)); LIPASE 185 u/l (23-300); POTASSIUM 4.1 mmol/l (3.5-5.1); SGOT/AST 26 u/l (17-59); SGPT/ALT 40 u/l (21-72); SODIUM 141 mmol/l (137-146); TOTAL PROTEIN 6.8 g/dL (6.3-8.2)
[2017-12-12] MEDS ORDERED: ZOFRAN ODT4 MG PO (00:02)
[2017-12-12] MEDS ORDERED: PREVACID30 M3 PO (00:25)
[2017-12-12 01:05] VITALS: BP 124/64
== END 2017-12-12 00:47 | disposition home or self-care (01) ==
LOC: ED 20:21
PROVIDERS: Emergency Medicine
DX: K29.70 Gastritis, unspecified, without bleeding (principal); R10.84 Generalized abdominal pain; R11.0 Nausea; R42 Dizziness and giddiness; J44.9 Chronic obstructive pulmonary disease, unspecified
CPT/HCPCS: Q9967

== ENCOUNTER 2017-12-15 01:29 | Emergency (ER) | payer MEDICARE ==
[~2017-12-15] VITALS: Ht 177.8 cm; Wt 91.6 kg
[~2017-12-15 01:29] MED LIST changes: +ZOFRAN ODT4 MG PO
[2017-12-15] MEDS ORDERED: MELOXICAM7.5 MG PO (02:36)
[2017-12-15 02:57] LABS: HEMATOCRIT 46.1 % (39.0-50.0); IMMATURE GRANULOCYTES 0.4 % (0.0-1.0); MEAN CELL VOLUME 99.8 fL CALC (80.0-100.0); MEAN CORPUSCULAR HGB 32.5 pG CALC (26.0-32.0); MEAN CORPUSCULAR HGB CONC 32.5 g/L CALC (32.0-36.0); NEUT# 4.42 thou/uL (1.82-7.42); RED BLOOD COUNT 4.62 mill/uL (4.70-6.10); RED CELL DISTRI WIDTH 13.2 % (11.5-15.5)
[2017-12-15 03:14] LABS: URINE BILIRUBIN - DIPSTICK NEGATIVE (NEGATIVE); URINE BLOOD DIPSTICK NEGATIVE (NEGATIVE); URINE COLOR YELLOW; URINE GLUCOSE - DIPSTICK NEGATIVE (NEGATIVE); URINE KETONE NEGATIVE (NEGATIVE); URINE LEUK ESTERASE NEGATIVE (NEGATIVE); URINE NITRITE - DIPSTICK NEGATIVE (Negative); URINE PH 6.5 (4.5-8.0); URINE PROTEIN - DIPSTICK NEGATIVE (NEG-TRACE); URINE SPECIFIC GRAVITY 1.015; URINE UROBILINOGEN - DIPSTICK 0.2 E.U./dL (0.2)
[2017-12-15 03:16] LABS: ALBUMIN 3.9 g/dL (3.2-5.0); ALKALINE PHOSPHATASE 90 u/l (38-126); AMYLASE 50 u/l (30-110); ANION GAP 12 (6-22 (CALC)); BILIRUBIN, TOTAL 0.4 mg/dL (0.0-1.4); BUN 17 mg/dL (9-20); BUN/CREATININE RATIO 15 (12-20 (CALC)); CARBON DIOXIDE 28 mmol/l (22-30); CHLORIDE 107 mmol/l (95-108); CREATININE 1.1 mg/dL (0.7-1.3); GFR > 60 ML/MIN (>=60 (CALC)); GFR FOR AFR.AMER. > 60 ML/MIN (>=60 (CALC)); LIPASE 158 u/l (23-300); POTASSIUM 4.5 mmol/l (3.5-5.1); SGOT/AST 32 u/l (17-59); SGPT/ALT 30 u/l (21-72); SODIUM 142 mmol/l (137-146); TOTAL PROTEIN 6.7 g/dL (6.3-8.2)
[2017-12-15 03:20] LABS: URINE CLARITY CLEAR
[2017-12-15 04:46] VITALS: BP 130/80
== END 2017-12-15 04:45 | disposition home or self-care (01) ==
LOC: ED 01:29
PROVIDERS: Emergency Medicine
DX: R10.84 Generalized abdominal pain (principal); K59.00 Constipation, unspecified; J44.9 Chronic obstructive pulmonary disease, unspecified
CPT/HCPCS: Q9967

== ENCOUNTER 2018-02-08 12:54 | Day surgery (SDC) | payer MEDICARE ==
[~2018-02-08 12:54] MED LIST changes: +FLORASTOR250 M1 PO; +PROVENTIL0.083 % IN; +SM NASAL DECONG10 MG PO
[2018-02-25] MEDS ORDERED: CLARITIN10 M2 PO (10:02)
[2018-02-25] MEDS ORDERED: VITAMIN B12 PO (16:57)
== END 2018-02-08 14:00 | disposition left against medical advice (07) ==
LOC: ENDO 12:54 → LWOBS 12:54 → ENDO 14:00
PROVIDERS: ATTEND Internal Medicine Gastroenterology
DX: Z91.19 Patient's noncompliance with other medical treatment and regimen (principal)

== ENCOUNTER 2018-03-01 10:03 | Day surgery (SDC) | payer MEDICARE ==
[~2018-03-01] VITALS: Ht 177.8 cm; Wt 90.3 kg
[~2018-03-01 10:03] MED LIST changes: +CLARITIN10 M2 PO; +VITAMIN B12 PO
[2018-03-01 11:02] LABS: BARBITURATES NEGATIVE (NEGATIVE); COCAINE NEGATIVE (NEGATIVE); METHADONE NEGATIVE (NEGATIVE); OXCYCODONE NEGATIVE (NEGATIVE); TETRAHYDROCANNABIONOL NEGATIVE (NEGATIVE); TRICYLIC ANTIDEPRESSANTS NEGATIVE (NEGATIVE)
[2018-03-01 13:57] VITALS: BP 109/75
[2018-03-01] MEDS ORDERED: ZYRTEC10 MG PO (23:36)
[2018-03-01] MEDS ORDERED: ALBUTEROL SUL0.083 % IN (23:37)
[2018-03-01] MEDS ORDERED: DOXYCYCL HYC100 MG PO (23:43)
== END 2018-03-01 13:20 | disposition home or self-care (01) ==
LOC: ENDO 10:03 → ORM 13:15 → ENDO 13:15
PROVIDERS: ATTEND Internal Medicine Gastroenterology
PROC: 0DBK8ZX Excision of Ascending Colon, Via Natural or Artificial Opening Endoscopic, Diagnostic (ICD-10-PCS; principal; 2018-03-01)
PROC: 0DBL8ZX Excision of Transverse Colon, Via Natural or Artificial Opening Endoscopic, Diagnostic (ICD-10-PCS; 2018-03-01)
PROC: 0DBN8ZX Excision of Sigmoid Colon, Via Natural or Artificial Opening Endoscopic, Diagnostic (ICD-10-PCS; 2018-03-01)
PROC: 0DBP8ZX Excision of Rectum, Via Natural or Artificial Opening Endoscopic, Diagnostic (ICD-10-PCS; 2018-03-01)
PROC: 0DBM8ZX Excision of Descending Colon, Via Natural or Artificial Opening Endoscopic, Diagnostic (ICD-10-PCS; 2018-03-01)
PROC: 0DB98ZX Excision of Duodenum, Via Natural or Artificial Opening Endoscopic, Diagnostic (ICD-10-PCS; 2018-03-01)
PROC: 0DB48ZX Excision of Esophagogastric Junction, Via Natural or Artificial Opening Endoscopic, Diagnostic (ICD-10-PCS; 2018-03-01)
DX: R19.7 Diarrhea, unspecified (principal); R10.31 Right lower quadrant pain; R11.0 Nausea; K59.00 Constipation, unspecified; K62.5 Hemorrhage of anus and rectum; K64.4 Residual hemorrhoidal skin tags; D12.2 Benign neoplasm of ascending colon; D12.4 Benign neoplasm of descending colon; D12.5 Benign neoplasm of sigmoid colon; D12.3 Benign neoplasm of transverse colon; D12.8 Benign neoplasm of rectum; K21.9 Gastro-esophageal reflux disease without esophagitis; K29.70 Gastritis, unspecified, without bleeding; K44.9 Diaphragmatic hernia without obstruction or gangrene; I10 Essential (primary) hypertension; J44.9 Chronic obstructive pulmonary disease, unspecified; R05 Cough; R06.02 Shortness of breath; J18.9 Pneumonia, unspecified organism; J01.90 Acute sinusitis, unspecified; J44.0 Chronic obstructive pulmonary disease with (acute) lower respiratory infection
CPT/HCPCS: S0164

== ENCOUNTER 2018-03-01 21:45 | Emergency (ER) | payer MEDICARE ==
[~2018-03-01] VITALS: Ht 177.8 cm; Wt 87.7 kg
[2018-03-01 22:25] LABS: IMMATURE GRANULOCYTES 0.4 % (0.0-5.0); MEAN CELL VOLUME 99.4 fL CALC (80.0-100.0); MEAN CORPUSCULAR HGB 32.4 pG CALC (26.0-32.0); MEAN CORPUSCULAR HGB CONC 32.6 g/L CALC (32.0-36.0); NEUT# 13.46 thou/uL (1.82-7.42); RED BLOOD COUNT 4.63 mill/uL (4.70-6.10); RED CELL DISTRI WIDTH 13.1 % (11.5-15.5)
[2018-03-01 22:37] LABS: ALBUMIN 3.8 g/dL (3.2-5.0); ALKALINE PHOSPHATASE 92 u/l (38-126); AMYLASE 46 u/l (30-110); ANION GAP 11 (6-22 (CALC)); BILIRUBIN, TOTAL 0.5 mg/dL (0.0-1.4); BUN 10 mg/dL (9-20); BUN/CREATININE RATIO 9 (12-20 (CALC)); CARBON DIOXIDE 32 mmol/l (22-30); CHLORIDE 104 mmol/l (95-108); CREATININE 1.1 mg/dL (0.7-1.3); GFR > 60 ML/MIN (>=60 (CALC)); GFR FOR AFR.AMER. > 60 ML/MIN (>=60 (CALC)); LIPASE 53 u/l (23-300); POTASSIUM 3.8 mmol/l (3.5-5.1); SGOT/AST 28 u/l (17-59); SGPT/ALT 40 u/l (21-72); SODIUM 143 mmol/l (137-146); TOTAL PROTEIN 6.4 g/dL (6.3-8.2)
[2018-03-01] MEDS ORDERED: ZYRTEC10 MG PO (23:36)
[2018-03-01] MEDS ORDERED: ALBUTEROL SUL0.083 % IN (23:37)
[2018-03-01] MEDS ORDERED: DOXYCYCL HYC100 MG PO (23:43)
[2018-03-02] VITALS: BP 131/69
== END 2018-03-02 | disposition home or self-care (01) ==
LOC: ED 21:45
PROVIDERS: Family Medicine
DX: J18.9 Pneumonia, unspecified organism (principal); J44.0 Chronic obstructive pulmonary disease with (acute) lower respiratory infection; J01.90 Acute sinusitis, unspecified
CPT/HCPCS: S0164

== ENCOUNTER 2018-04-12 13:49 | Emergency (ER) | payer MEDICARE ==
[~2018-04-12] VITALS: Ht 177.8 cm; Wt 89.5 kg
[~2018-04-12 13:49] MED LIST changes: +ZYRTEC10 MG PO
[2018-04-12 14:24] LABS: HEMOGLOBIN 14.8 g/dl (14.0-18.0); MEAN CORPUSCULAR HGB 32.2 pG CALC (26.0-32.0); MEAN CORPUSCULAR HGB CONC 32.2 g/L CALC (32.0-36.0); RED BLOOD COUNT 4.6 mill/uL (4.70-6.10); RED CELL DISTRI WIDTH 13.7 % (11.5-15.5)
[2018-04-12 14:55] LABS: INTERNATIONAL NORMALIZED RATIO 0.9 RATIO (0.7-1.3); PROTHROMBIN TIME 9.9 SECONDS (9.0-12.5)
[2018-04-12 15:03] LABS: ALBUMIN 3.8 g/dL (3.2-5.0); ALKALINE PHOSPHATASE 94 u/l (38-126); ANION GAP 13 (6-22 (CALC)); BILIRUBIN, TOTAL 0.3 mg/dL (0.0-1.4); BUN 14 mg/dL (9-20); BUN/CREATININE RATIO 12 (12-20 (CALC)); CARBON DIOXIDE 29 mmol/l (22-30); CHLORIDE 107 mmol/l (95-108); CREATININE 1.2 mg/dL (0.7-1.3); GFR > 60 ML/MIN (>=60 (CALC)); GFR FOR AFR.AMER. > 60 ML/MIN (>=60 (CALC)); POTASSIUM 3.8 mmol/l (3.5-5.1); SGOT/AST 26 u/l (17-59); SODIUM 145 mmol/l (137-146); TOTAL PROTEIN 6.7 g/dL (6.3-8.2)
[2018-04-12 15:15] LABS: MYOGLOBIN 69 ng/mL (0 - 121)
[2018-04-12 16:26] LABS: URINE BILIRUBIN - DIPSTICK NEGATIVE (NEGATIVE); URINE COLOR YELLOW; URINE GLUCOSE - DIPSTICK NEGATIVE (NEGATIVE); URINE KETONE NEGATIVE (NEGATIVE); URINE LEUK ESTERASE NEGATIVE (NEGATIVE); URINE NITRITE - DIPSTICK NEGATIVE (Negative); URINE PROTEIN - DIPSTICK NEGATIVE (NEG-TRACE); URINE SPECIFIC GRAVITY <=1.005; URINE UROBILINOGEN - DIPSTICK 0.2 E.U./dL (0.2)
[2018-04-12 16:28] LABS: URINE CLARITY CLEAR
[2018-04-12 16:29] LABS: URINE BLOOD DIPSTICK NEGATIVE (NEGATIVE)
[2018-04-12 16:30] LABS: BARBITURATES NEGATIVE (NEGATIVE); COCAINE NEGATIVE (NEGATIVE); METHADONE NEGATIVE (NEGATIVE); OXCYCODONE NEGATIVE (NEGATIVE); TETRAHYDROCANNABIONOL NEGATIVE (NEGATIVE); TRICYLIC ANTIDEPRESSANTS NEGATIVE (NEGATIVE)
[2018-04-12 16:44] VITALS: BP 155/78
== END 2018-04-12 16:50 | disposition home or self-care (01) ==
LOC: ED 13:49
DX: R42 Dizziness and giddiness (principal); I10 Essential (primary) hypertension; J44.9 Chronic obstructive pulmonary disease, unspecified; D50.9 Iron deficiency anemia, unspecified; E78.5 Hyperlipidemia, unspecified; N30.91 Cystitis, unspecified with hematuria; M31.6 Other giant cell arteritis; R79.82 Elevated C-reactive protein (CRP)

== ENCOUNTER 2018-07-08 19:53 | Emergency (ER) | payer MEDICARE ==
[~2018-07-08] VITALS: Ht 177.8 cm; Wt 97.0 kg
[2018-07-08] MEDS ORDERED: CARAFATE1 GM PO (20:29)
[2018-07-08] MEDS ORDERED: PRILOSEC20 MG PO (20:30)
[2018-07-08] MEDS ORDERED: LOSARTAN POT25 MG PO (20:30)
[2018-07-08] MEDS ORDERED: PROAIR HFA108 MCG/AC IN (20:30)
[2018-07-08 20:33] LABS: HEMATOCRIT 46.9 % (39.0-50.0); HEMOGLOBIN 15.3 g/dl (14.0-18.0); IMMATURE GRANULOCYTES 0.6 % (0.0-5.0); MEAN CELL VOLUME 98.3 fL CALC (80.0-100.0); MEAN CORPUSCULAR HGB 32.1 pG CALC (26.0-32.0); MEAN CORPUSCULAR HGB CONC 32.6 g/L CALC (32.0-36.0); NEUT# 8.63 thou/uL (1.82-7.42); RED BLOOD COUNT 4.77 mill/uL (4.70-6.10); RED CELL DISTRI WIDTH 13.4 % (11.5-15.5)
--- NOTE | 2018-07-08 20:36 | NUR ---
BREATHING TREATMENT GIVEN.
[2018-07-08 21:21] LABS: ALBUMIN 3.9 g/dL (3.2-5.0); ALKALINE PHOSPHATASE 92 u/l (38-126); ANION GAP 12 (6-22 (CALC)); BILIRUBIN, TOTAL 0.4 mg/dL (0.0-1.4); BUN 16 mg/dL (9-20); BUN/CREATININE RATIO 14 (12-20 (CALC)); CARBON DIOXIDE 26 mmol/l (22-30); CHLORIDE 106 mmol/l (95-108); CREATININE 1.2 mg/dL (0.7-1.3); GFR > 60 ML/MIN (>=60 (CALC)); GFR FOR AFR.AMER. > 60 ML/MIN (>=60 (CALC)); POTASSIUM 3.8 mmol/l (3.5-5.1); SGOT/AST 26 u/l (17-59); SODIUM 140 mmol/l (137-146); TOTAL PROTEIN 6.4 g/dL (6.3-8.2)
[2018-07-08 21:33] LABS: MYOGLOBIN 111 ng/mL (0 - 121)
[2018-07-08 21:39] LABS: URINE BILIRUBIN - DIPSTICK NEGATIVE (NEGATIVE); URINE BLOOD DIPSTICK TRACE-INTACT (NEGATIVE); URINE COLOR YELLOW; URINE GLUCOSE - DIPSTICK NEGATIVE (NEGATIVE); URINE KETONE NEGATIVE (NEGATIVE); URINE LEUK ESTERASE NEGATIVE (NEGATIVE); URINE NITRITE - DIPSTICK NEGATIVE (Negative); URINE PROTEIN - DIPSTICK NEGATIVE (NEG-TRACE); URINE SPECIFIC GRAVITY <=1.005; URINE UROBILINOGEN - DIPSTICK 0.2 E.U./dL (0.2)
[2018-07-08] MEDS ORDERED: MEDDOSEPAK PO (21:46)
[2018-07-08] MEDS ORDERED: Levaquin PO (21:46)
[2018-07-08 23:12] VITALS: BP 125/72
== END 2018-07-08 23:00 | disposition home or self-care (01) ==
LOC: ED 19:53
PROVIDERS: Emergency Medicine
DX: J44.1 Chronic obstructive pulmonary disease with (acute) exacerbation (principal); I10 Essential (primary) hypertension; R06.02 Shortness of breath
CPT/HCPCS: J1956

== ENCOUNTER 2018-08-30 14:05 | Emergency (ER) | payer MEDICARE ==
[~2018-08-30] VITALS: Ht 177.8 cm; Wt 89.5 kg
[~2018-08-30 14:05] MED LIST changes: +CARAFATE1 GM PO; +PRILOSEC20 MG PO
[2018-08-30] MEDS ORDERED: LINZESS72 MCG (14:29)
[2018-08-30] MEDS ORDERED: [UNRECOGNIZED DRUG - OTHER] PO (14:32)
[2018-08-30] MEDS ORDERED: CLARITIN-D1 TA2 PO (14:33)
[2018-08-30] MEDS ORDERED: AZELASTINE HCL0.1 % (14:33)
[2018-08-30] MEDS ORDERED: FLONASE AL50 MCG/ACT (14:34)
[2018-08-30] MEDS ORDERED: SYMBICORT1 AE1 IN (14:35)
[2018-08-30 15:02] LABS: HEMATOCRIT 48.8 % (39.0-50.0); HEMOGLOBIN 15.8 g/dl (14.0-18.0); IMMATURE GRANULOCYTES 0.7 % (0.0-5.0); MEAN CELL VOLUME 97.6 fL CALC (80.0-100.0); MEAN CORPUSCULAR HGB 31.6 pG CALC (26.0-32.0); MEAN CORPUSCULAR HGB CONC 32.4 g/L CALC (32.0-36.0); NEUT# 6.09 thou/uL (1.82-7.42); RED CELL DISTRI WIDTH 13.1 % (11.5-15.5)
[2018-08-30 15:13] LABS: ALBUMIN 4.5 g/dL (3.2-5.0); ALKALINE PHOSPHATASE 111 u/l (38-126); BILIRUBIN, TOTAL 0.5 mg/dL (0.0-1.4); BUN 18 mg/dL (9-20); BUN/CREATININE RATIO 15 (12-20 (CALC)); CARBON DIOXIDE 27 mmol/l (22-30); CHLORIDE 103 mmol/l (95-108); CREATININE 1.2 mg/dL (0.7-1.3); GFR > 60 ML/MIN (>=60 (CALC)); GFR FOR AFR.AMER. > 60 ML/MIN (>=60 (CALC)); SGOT/AST 26 u/l (17-59); SODIUM 140 mmol/l (137-146); TOTAL PROTEIN 7.3 g/dL (6.3-8.2)
[2018-08-30 15:16] LABS: ANION GAP 15 (6-22 (CALC)); POTASSIUM 4.6 mmol/l (3.5-5.1)
[2018-08-30 15:25] LABS: MYOGLOBIN 70 ng/mL (0 - 121)
[2018-08-30] MEDS ORDERED: MEDDOSEPAK PO (16:07)
[2018-08-30] MEDS ORDERED: BACTRIM DS1 TAB PO (16:07)
[2018-08-30 16:22] VITALS: BP 136/84
== END 2018-08-30 16:22 | disposition home or self-care (01) ==
LOC: ED 14:05
PROVIDERS: Emergency Medicine
DX: J44.1 Chronic obstructive pulmonary disease with (acute) exacerbation (principal); I10 Essential (primary) hypertension; R06.02 Shortness of breath

== ENCOUNTER 2019-04-01 20:19 | Emergency (ER) | payer MEDICARE, MEDICAID ==
[~2019-04-01] VITALS: Ht 177.8 cm; Wt 113.6 kg
[~2019-04-01 20:19] MED LIST changes: +AZELASTINE HCL0.1 %; +AZITHROMYCIN500 MG PO; +BACTRIM DS1 TAB PO; +CLARITIN-D1 TA2 PO; +HYDROXYZINE HCL25 M1 PO; +LINZESS72 MCG; +OMEPRAZOLE20 M2 PO; +[UNRECOGNIZED DRUG - OTHER] PO
--- NOTE | 2019-04-01 20:44 | NUR ---
BREATHING TREATMENT GIVEN. BREATHING TECH. FOR GOOD DEPOSITION TO THE LUNGS.
[2019-04-01 20:52] LABS: HEMATOCRIT 46.5 % (39.0-50.0); HEMOGLOBIN 15.1 g/dl (14.0-18.0); IMMATURE GRANULOCYTES 0.5 % (0.0-5.0); MEAN CELL VOLUME 96.5 fL CALC (80.0-100.0); MEAN CORPUSCULAR HGB 31.3 pG CALC (26.0-32.0); MEAN CORPUSCULAR HGB CONC 32.5 g/L CALC (32.0-36.0); NEUT# 5.77 thou/uL (1.82-7.42); RED BLOOD COUNT 4.82 mill/uL (4.70-6.10); RED CELL DISTRI WIDTH 13.2 % (11.5-15.5)
[2019-04-01 21:10] LABS: ALBUMIN 4.2 g/dL (3.2-5.0); ALKALINE PHOSPHATASE 102 u/l (38-126); ANION GAP 14 (6-22 (CALC)); BILIRUBIN, TOTAL 0.3 mg/dL (0.0-1.4); BUN 14 mg/dL (9-20); BUN/CREATININE RATIO 9 (12-20 (CALC)); CARBON DIOXIDE 26 mmol/l (22-30); CHLORIDE 103 mmol/l (95-108); CREATININE 1.6 mg/dL (0.7-1.3); GFR 45 ML/MIN (>=60 (CALC)); GFR FOR AFR.AMER. 55 ML/MIN (>=60 (CALC)); SGOT/AST 30 u/l (17-59); SODIUM 139 mmol/l (137-146); TOTAL PROTEIN 7.4 g/dL (6.3-8.2)
[2019-04-01 21:22] LABS: MYOGLOBIN 107 ng/mL (0 - 121)
[2019-04-01] MEDS ORDERED: MEDDOSEPAK PO (21:52)
[2019-04-01] MEDS ORDERED: ZPAK PO (21:52)
[2019-04-01 22:37] VITALS: BP 122/79
== END 2019-04-01 22:43 | disposition home or self-care (01) ==
LOC: ED 20:19
PROVIDERS: Emergency Medicine
DX: J45.901 Unspecified asthma with (acute) exacerbation (principal); J06.9 Acute upper respiratory infection, unspecified; I10 Essential (primary) hypertension; J44.9 Chronic obstructive pulmonary disease, unspecified

== ENCOUNTER 2019-09-04 | Emergency (ER) | payer MEDICARE, MEDICAID ==
[2019-09-04] MEDS ORDERED: PREDNISONE10 MG PO (11:08)
[2019-09-04] MEDS ORDERED: Levaquin PO (11:10)
[2019-09-04 11:36] LABS: HEMATOCRIT 47.3 % (39.0-50.0); HEMOGLOBIN 15.3 g/dl (14.0-18.0); IMMATURE GRANULOCYTES 0.7 % (0.0-5.0); MEAN CELL VOLUME 98.1 fL CALC (80.0-100.0); MEAN CORPUSCULAR HGB 31.7 pG CALC (26.0-32.0); MEAN CORPUSCULAR HGB CONC 32.3 g/dL CAL (32.0-36.0); NEUT# 6.96 thou/uL (1.82-7.42); RED BLOOD COUNT 4.82 mill/uL (4.70-6.10); RED CELL DISTRI WIDTH 13.3 % (11.5-15.5)
[2019-09-04 11:55] LABS: ALBUMIN 3.9 g/dL (3.2-5.0); ALKALINE PHOSPHATASE 86 u/l (38-126); ANION GAP 13 (6-22 (CALC)); BUN 25 mg/dL (9-20); BUN/CREATININE RATIO 17 (12-20 (CALC)); CARBON DIOXIDE 25 mmol/l (22-30); CHLORIDE 104 mmol/l (95-108); CREATININE 1.4 mg/dL (0.7-1.3); GFR 53 ML/MIN (>=60 (CALC)); GFR FOR AFR.AMER. > 60 ML/MIN (>=60 (CALC)); POTASSIUM 4.1 mmol/l (3.5-5.1); SGOT/AST 39 u/l (17-59); SODIUM 138 mmol/l (137-146); TOTAL PROTEIN 7.2 g/dL (6.3-8.2)
[2019-09-04 12:04] LABS: BILIRUBIN, TOTAL 0.6 mg/dL (0.0-1.4)
[2019-09-04 12:05] LABS: MYOGLOBIN 76 ng/mL (0 - 121)
[2019-09-04] MEDS ORDERED: ZPAK PO (12:22)
== END 2019-09-04 12:30 | disposition home or self-care (01) ==
PROVIDERS: Emergency Medicine
DX: J06.9 Acute upper respiratory infection, unspecified (principal); J44.9 Chronic obstructive pulmonary disease, unspecified; I10 Essential (primary) hypertension; R06.02 Shortness of breath

== ENCOUNTER 2020-06-17 15:09 | Emergency (ER) | payer MEDICARE, MEDICAID ==
[~2020-06-17] VITALS: Ht 177.8 cm; Wt 100.0 kg
[2020-06-17 15:57] LABS: HEMOGLOBIN 15.8 g/dl (14.0-18.0); IMMATURE GRANULOCYTES 0.3 % (0.0-5.0); MEAN CELL VOLUME 95.6 fL CALC (80.0-100.0); MEAN CORPUSCULAR HGB 31.5 pG CALC (26.0-32.0); MEAN CORPUSCULAR HGB CONC 32.9 g/dL CAL (32.0-36.0); NEUT# 6.95 thou/uL (1.82-7.42); RED BLOOD COUNT 5.02 mill/uL (4.70-6.10); RED CELL DISTRI WIDTH 13.1 % (11.5-15.5)
[2020-06-17 16:25] LABS: PROTHROMBIN TIME 11.6 SECONDS (9.0-12.5)
[2020-06-17 16:27] LABS: INTERNATIONAL NORMALIZED RATIO 1.2 RATIO (0.7-1.3)
[2020-06-17 17:08] LABS: ALKALINE PHOSPHATASE 95 u/l (38-126); ANION GAP 11 (6-22 (CALC)); BUN 18 mg/dL (9-20); BUN/CREATININE RATIO 14 (12-20 (CALC)); CARBON DIOXIDE 25 mmol/l (22-30); CHLORIDE 108 mmol/l (95-108); CREATININE 1.3 mg/dL (0.7-1.3); GFR 57 ML/MIN (>=60 (CALC)); GFR FOR AFR.AMER. > 60 ML/MIN (>=60 (CALC)); POTASSIUM 4.2 mmol/l (3.5-5.1); SGOT/AST 27 u/l (17-59); SODIUM 140 mmol/l (137-146); TOTAL PROTEIN 6.7 g/dL (6.3-8.2)
[2020-06-17 17:09] LABS: BILIRUBIN, TOTAL 0.3 mg/dL (0.0-1.4)
[2020-06-17] MEDS ORDERED: ZPAK PO (18:15)
[2020-06-17 19:20] VITALS: BP 122/87
== END 2020-06-17 19:20 | disposition left against medical advice (07) ==
LOC: ED 15:09
PROVIDERS: Family Medicine
DX: R07.9 Chest pain, unspecified (principal); J18.9 Pneumonia, unspecified organism; I10 Essential (primary) hypertension; J44.9 Chronic obstructive pulmonary disease, unspecified; K21.9 Gastro-esophageal reflux disease without esophagitis; F17.220 Nicotine dependence, chewing tobacco, uncomplicated; Z91.19 Patient's noncompliance with other medical treatment and regimen

== ENCOUNTER 2020-08-27 16:03 | Emergency (ER) | payer MEDICARE, MEDICAID ==
[~2020-08-27] VITALS: Ht 177.8 cm; Wt 80.0 kg
[2020-08-27 16:58] LABS: HEMATOCRIT 46.9 % (39.0-50.0); IMMATURE GRANULOCYTES 0.3 % (0.0-5.0); MEAN CELL VOLUME 96.9 fL CALC (80.0-100.0); NEUT# 5.76 thou/uL (1.82-7.42); RED BLOOD COUNT 4.84 mill/uL (4.70-6.10)
[2020-08-27 17:15] LABS: PROTHROMBIN TIME 10.5 SECONDS (9.0-12.5)
[2020-08-27 17:17] LABS: ALBUMIN 4.2 g/dL (3.2-5.0); ALKALINE PHOSPHATASE 101 u/l (38-126); BUN 17 mg/dL (9-20); BUN/CREATININE RATIO 13 (12-20 (CALC)); CARBON DIOXIDE 27 mmol/l (22-30); CHLORIDE 102 mmol/l (95-108); CREATININE 1.3 mg/dL (0.7-1.3); GFR 57 ML/MIN (>=60 (CALC)); GFR FOR AFR.AMER. > 60 ML/MIN (>=60 (CALC)); SGOT/AST 33 u/l (17-59); SODIUM 138 mmol/l (137-146); TOTAL PROTEIN 7.1 g/dL (6.3-8.2)
[2020-08-27 17:19] LABS: ANION GAP 12 (6-22 (CALC)); BILIRUBIN, TOTAL 0.6 mg/dL (0.0-1.4); POTASSIUM 3.3 mmol/l (3.5-5.1)
[2020-08-27] MEDS ORDERED: MEDDOSEPAK PO (18:00)
[2020-08-27] MEDS ORDERED: AZITHROMYCIN500 MG PO (18:06)
[2020-08-27 18:33] VITALS: BP 125/65
== END 2020-08-27 18:36 | disposition home or self-care (01) ==
LOC: ED 16:03
DX: J44.9 Chronic obstructive pulmonary disease, unspecified (principal); I10 Essential (primary) hypertension; K21.9 Gastro-esophageal reflux disease without esophagitis; F17.200 Nicotine dependence, unspecified, uncomplicated; Z20.822 Contact with and (suspected) exposure to COVID-19

== ENCOUNTER 2020-10-03 09:05 | Emergency (ER) | payer MEDICARE, MEDICAID ==
[~2020-10-03 09:05] MED LIST changes: -OMEPRAZOLE20 M2 PO; +OMEPRAZOLE20 MG PO
[2020-10-03] MEDS ORDERED: PREDNISONE50 MG PO (09:42)
[2020-10-03] MEDS ORDERED: ZPAK PO (09:42)
[2020-10-03 10:36] VITALS: BP 134/72
[2020-10-03] MEDS ORDERED: DOXYCYC MONO100 M2 PO (10:37)
[2020-10-03] MEDS ORDERED: PROAIR HFA108 MCG/AC PO (10:37)
== END 2020-10-03 10:40 | disposition home or self-care (01) ==
LOC: ED 09:05
DX: J44.9 Chronic obstructive pulmonary disease, unspecified (principal); I10 Essential (primary) hypertension; K21.9 Gastro-esophageal reflux disease without esophagitis; Z20.822 Contact with and (suspected) exposure to COVID-19

== ENCOUNTER 2021-01-08 09:53 | Emergency (ER) | payer MEDICARE, MEDICAID ==
[~2021-01-08 09:53] MED LIST changes: +DOXYCYC MONO100 M2 PO; +PROAIR HFA108 MCG/AC PO
[2021-01-08] MEDS ORDERED: LISINOPRIL20 M1 PO (10:53)
[2021-01-08] MEDS ORDERED: [UNRECOGNIZED DRUG - REMARK] (11:02)
[2021-01-08] MEDS ORDERED: CHOLESTEROL PILL (11:05)
[2021-01-08] MEDS ORDERED: ATORVASTATIN CA20 MG PO (11:13)
[2021-01-08] MEDS ORDERED: LEVOCETIRIZINE D5 MG PO (11:13)
[2021-01-08] MEDS ORDERED: CYCLOBENZAPRINE10 MG PO (11:14)
[2021-01-08] MEDS ORDERED: TRELEGY ELLIPTA1 AER IN (11:15)
[2021-01-08 11:55] VITALS: BP 121/74
== END 2021-01-08 11:55 | disposition home or self-care (01) ==
LOC: ED 09:53
PROC: 0QSQXZZ Reposition Right Toe Phalanx, External Approach (ICD-10-PCS; principal; 2021-01-08)
DX: S92.511A Displaced fracture of proximal phalanx of right lesser toe(s), initial encounter for closed fracture (principal); U07.1 COVID-19; I10 Essential (primary) hypertension; J44.9 Chronic obstructive pulmonary disease, unspecified; K21.9 Gastro-esophageal reflux disease without esophagitis; F17.200 Nicotine dependence, unspecified, uncomplicated; W22.03XA Walked into furniture, initial encounter; Y92.009 Unspecified place in unspecified non-institutional (private) residence as the place of occurrence of the external cause

== ENCOUNTER 2021-03-07 19:07 | Emergency (ER) | payer MEDICARE, MEDICAID ==
[~2021-03-07] VITALS: Ht 177.8 cm; Wt 100.0 kg
[~2021-03-07 19:07] MED LIST changes: +ATORVASTATIN CA20 MG PO; +CHOLESTEROL PILL; +CYCLOBENZAPRINE10 MG PO; +LISINOPRIL20 M1 PO; +TRELEGY ELLIPTA1 AER IN; +[UNRECOGNIZED DRUG - REMARK]
[2021-03-07 20:31] LABS: HEMATOCRIT 45.4 % (39.0-50.0); HEMOGLOBIN 14.9 g/dl (14.0-18.0); IMMATURE GRANULOCYTES 0.4 % (0.0-5.0); MEAN CELL VOLUME 99.6 fL CALC (80.0-100.0); MEAN CORPUSCULAR HGB 32.7 pG CALC (26.0-32.0); MEAN CORPUSCULAR HGB CONC 32.8 g/dL CAL (32.0-36.0); NEUT# 5.93 thou/uL (1.82-7.42); RED BLOOD COUNT 4.56 mill/uL (4.70-6.10); RED CELL DISTRI WIDTH 13.4 % (11.5-15.5)
[2021-03-07 20:47] LABS: ALBUMIN 4.2 g/dL (3.2-5.0); ALKALINE PHOSPHATASE 110 u/l (38-126); ANION GAP 14 (6-22 (CALC)); BILIRUBIN, TOTAL 0.6 mg/dL (0.0-1.4); BUN 13 mg/dL (9-20); BUN/CREATININE RATIO 11 (12-20 (CALC)); CARBON DIOXIDE 25 mmol/l (22-30); CHLORIDE 105 mmol/l (95-108); CREATININE 1.2 mg/dL (0.7-1.3); GFR > 60 ML/MIN (>=60 (CALC)); GFR FOR AFR.AMER. > 60 ML/MIN (>=60 (CALC)); POTASSIUM 3.4 mmol/l (3.5-5.1); SGOT/AST 37 u/l (17-59); SODIUM 141 mmol/l (137-146); TOTAL PROTEIN 7.3 g/dL (6.3-8.2)
[2021-03-07 21:00] LABS: MYOGLOBIN 183 ng/mL (0 - 121)
[2021-03-07 21:38] VITALS: BP 149/79
== END 2021-03-07 21:48 | disposition home or self-care (01) ==
LOC: ED 19:07
PROVIDERS: Emergency Medicine
DX: J44.9 Chronic obstructive pulmonary disease, unspecified (principal); I10 Essential (primary) hypertension; K21.9 Gastro-esophageal reflux disease without esophagitis; F17.200 Nicotine dependence, unspecified, uncomplicated; T50.916A Underdosing of multiple unspecified drugs, medicaments and biological substances, initial encounter; Z91.128 Patient's intentional underdosing of medication regimen for other reason

== ENCOUNTER 2021-06-17 21:58 | Emergency (ER) | payer MEDICARE, MEDICAID ==
[~2021-06-17] VITALS: Ht 177.8 cm; Wt 100.0 kg
[2021-06-18 00:57] LABS: ALBUMIN 4.1 g/dL (3.2-5.0); ALKALINE PHOSPHATASE 112 u/l (38-126); BILIRUBIN, TOTAL 0.7 mg/dL (0.0-1.4); BUN 14 mg/dL (9-20); BUN/CREATININE RATIO 13 (12-20 (CALC)); CARBON DIOXIDE 23 mmol/l (22-30); CHLORIDE 107 mmol/l (95-108); CREATININE 1.1 mg/dL (0.7-1.3); GFR > 60 ML/MIN (>=60 (CALC)); GFR FOR AFR.AMER. > 60 ML/MIN (>=60 (CALC)); SGOT/AST 36 u/l (17-59); SODIUM 140 mmol/l (137-146); TOTAL PROTEIN 7.2 g/dL (6.3-8.2)
[2021-06-18 01:03] LABS: HEMATOCRIT 50.3 % (39.0-50.0); HEMOGLOBIN 16.3 g/dl (14.0-18.0); IMMATURE GRANULOCYTES 0.3 % (0.0-5.0); MEAN CORPUSCULAR HGB 32.4 pG CALC (26.0-32.0); MEAN CORPUSCULAR HGB CONC 32.4 g/dL CAL (32.0-36.0); NEUT# 5.85 thou/uL (1.82-7.42); RED BLOOD COUNT 5.03 mill/uL (4.70-6.10); RED CELL DISTRI WIDTH 12.4 % (11.5-15.5)
[2021-06-18 01:10] LABS: ANION GAP 15 (6-22 (CALC)); POTASSIUM 4.6 mmol/l (3.5-5.1)
[2021-06-18 01:27] VITALS: BP 138/84
== END 2021-06-18 01:41 | disposition home or self-care (01) ==
LOC: ED 21:58
PROVIDERS: Family Medicine
DX: T42.6X1A Poisoning by other antiepileptic and sedative-hypnotic drugs, accidental (unintentional), initial encounter (principal); R53.1 Weakness; R40.4 Transient alteration of awareness; T38.0X6A Underdosing of glucocorticoids and synthetic analogues, initial encounter; J44.9 Chronic obstructive pulmonary disease, unspecified; I10 Essential (primary) hypertension; K21.9 Gastro-esophageal reflux disease without esophagitis; F17.200 Nicotine dependence, unspecified, uncomplicated; Z91.128 Patient's intentional underdosing of medication regimen for other reason

== ENCOUNTER 2021-08-15 15:47 | Emergency (ER) | payer MEDICARE, MEDICAID ==
[2021-08-15] VITALS (12 sets, daily range): BP systolic 118–142; BP diastolic 77–103
[~2021-08-15] VITALS: Ht 177.8 cm; Wt 97.0 kg
[2021-08-15 16:15] LABS: HEMATOCRIT 45.8 % (39.0-50.0); HEMOGLOBIN 14.8 g/dl (14.0-18.0); IMMATURE GRANULOCYTES 0.3 % (0.0-5.0); MEAN CELL VOLUME 100.7 fL CALC (80.0-100.0); MEAN CORPUSCULAR HGB 32.5 pG CALC (26.0-32.0); MEAN CORPUSCULAR HGB CONC 32.3 g/dL CAL (32.0-36.0); NEUT# 5.57 thou/uL (1.82-7.42); RED BLOOD COUNT 4.55 mill/uL (4.70-6.10); RED CELL DISTRI WIDTH 12.9 % (11.5-15.5)
[2021-08-15 16:27] LABS: ALKALINE PHOSPHATASE 97 u/l (38-126); AMYLASE 72 u/l (30-110); ANION GAP 13 (6-22 (CALC)); BUN 11 mg/dL (9-20); BUN/CREATININE RATIO 11 (12-20 (CALC)); CARBON DIOXIDE 26 mmol/l (22-30); CHLORIDE 107 mmol/l (95-108); CREATININE 1.1 mg/dL (0.7-1.3); ETHYL ALCOHOL 0 mg/dl (0-30); GFR > 60 ML/MIN (>=60 (CALC)); GFR FOR AFR.AMER. > 60 ML/MIN (>=60 (CALC)); LIPASE 110 u/l (23-300); POTASSIUM 3.8 mmol/l (3.5-5.1); SGOT/AST 32 u/l (17-59); SODIUM 143 mmol/l (137-146); TOTAL PROTEIN 6.9 g/dL (6.3-8.2)
[2021-08-15 16:33] LABS: BILIRUBIN, TOTAL 0.4 mg/dL (0.0-1.4)
[2021-08-15 16:34] LABS: ACT PARTIAL THROMBO TIME 25.6 SECONDS (20.0-32.5); PROTHROMBIN TIME 10.3 SECONDS (9.0-12.5)
[2021-08-15] MEDS ORDERED: FLONASE AL50 MCG/ACT IN (16:49)
[2021-08-15] MEDS ORDERED: AZELASTINE HCL0.1 % IN (16:50)
[2021-08-15] MEDS ORDERED: CLINDAMYCIN300 M1 PO (16:52)
[2021-08-15] MEDS ORDERED: MEDDOSEPAK PO (18:55)
[2021-08-15] MEDS ORDERED: PROTONIX40 M2 PO (18:55)
[2021-08-15] MEDS ORDERED: ZPAK PO (18:56)
== END 2021-08-15 19:19 | disposition home or self-care (01) ==
LOC: ED 15:47
DX: J44.1 Chronic obstructive pulmonary disease with (acute) exacerbation (principal); K29.70 Gastritis, unspecified, without bleeding; I10 Essential (primary) hypertension; K21.9 Gastro-esophageal reflux disease without esophagitis; F17.200 Nicotine dependence, unspecified, uncomplicated; Z20.822 Contact with and (suspected) exposure to COVID-19

== ENCOUNTER 2021-10-14 02:27 | Emergency (ER) | payer MEDICARE, MEDICAID ==
[~2021-10-14] VITALS: Ht 180.3 cm; Wt 100.0 kg
[~2021-10-14 02:27] MED LIST changes: +AZELASTINE HCL0.1 % IN; +CLINDAMYCIN300 M1 PO; +FLONASE AL50 MCG/ACT IN; +PROTONIX40 M2 PO
[2021-10-14 03:11] LABS: HEMATOCRIT 43.9 % (39.0-50.0); HEMOGLOBIN 14.2 g/dl (14.0-18.0); IMMATURE GRANULOCYTES 0.2 % (0.0-5.0); MEAN CELL VOLUME 101.2 fL CALC (80.0-100.0); MEAN CORPUSCULAR HGB 32.7 pG CALC (26.0-32.0); MEAN CORPUSCULAR HGB CONC 32.3 g/dL CAL (32.0-36.0); NEUT# 6.09 thou/uL (1.82-7.42); RED BLOOD COUNT 4.34 mill/uL (4.70-6.10); RED CELL DISTRI WIDTH 12.9 % (11.5-15.5)
[2021-10-14 03:28] LABS: ALBUMIN 3.5 g/dL (3.2-5.0); ALKALINE PHOSPHATASE 107 u/l (38-126); ANION GAP 13 (6-22 (CALC)); BUN 19 mg/dL (9-20); BUN/CREATININE RATIO 17 (12-20 (CALC)); CARBON DIOXIDE 24 mmol/l (22-30); CHLORIDE 110 mmol/l (95-108); CREATININE 1.2 mg/dL (0.7-1.3); GFR > 60 ML/MIN (>=60 (CALC)); GFR FOR AFR.AMER. > 60 ML/MIN (>=60 (CALC)); POTASSIUM 3.8 mmol/l (3.5-5.1); SGOT/AST 21 u/l (17-59); SODIUM 144 mmol/l (137-146); TOTAL PROTEIN 5.8 g/dL (6.3-8.2)
[2021-10-14 03:32] LABS: BILIRUBIN, TOTAL 0.1 mg/dL (0.0-1.4)
[2021-10-14] MEDS ORDERED: ZITHROMAX250 MG PO (03:58)
[2021-10-14] MEDS ORDERED: CLARITIN10 M2 PO (03:58)
[2021-10-14] MEDS ORDERED: MEDDOSEPAK PO (04:02)
[2021-10-14 04:09] VITALS: BP 133/79
[2021-10-15] MEDS ORDERED: CIPROFLOXACN500 MG PO (23:12)
[2021-10-15] MEDS ORDERED: ROBITUSSIN AC10 ML PO (23:19)
== END 2021-10-14 04:09 | disposition home or self-care (01) ==
LOC: ED 02:27
PROVIDERS: Emergency Medicine
DX: J06.9 Acute upper respiratory infection, unspecified (principal); J44.1 Chronic obstructive pulmonary disease with (acute) exacerbation; I10 Essential (primary) hypertension; E11.9 Type 2 diabetes mellitus without complications; K21.9 Gastro-esophageal reflux disease without esophagitis; F17.200 Nicotine dependence, unspecified, uncomplicated; Z20.822 Contact with and (suspected) exposure to COVID-19

== ENCOUNTER 2021-10-15 20:32 | Emergency (ER) | payer MEDICARE, MEDICAID ==
[~2021-10-15] VITALS: Ht 180.3 cm; Wt 92.6 kg
[2021-10-15 21:42] LABS: HEMATOCRIT 43.9 % (39.0-50.0); HEMOGLOBIN 14.3 g/dl (14.0-18.0); IMMATURE GRANULOCYTES 0.4 % (0.0-5.0); MEAN CELL VOLUME 101.2 fL CALC (80.0-100.0); MEAN CORPUSCULAR HGB 32.9 pG CALC (26.0-32.0); MEAN CORPUSCULAR HGB CONC 32.6 g/dL CAL (32.0-36.0); NEUT# 12.24 thou/uL (1.82-7.42); RED BLOOD COUNT 4.34 mill/uL (4.70-6.10)
[2021-10-15 21:47] LABS: ALBUMIN 4.2 g/dL (3.2-5.0); ALKALINE PHOSPHATASE 92 u/l (38-126); ANION GAP 14 (6-22 (CALC)); BUN 21 mg/dL (9-20); BUN/CREATININE RATIO 18 (12-20 (CALC)); CARBON DIOXIDE 26 mmol/l (22-30); CHLORIDE 105 mmol/l (95-108); CREATININE 1.2 mg/dL (0.7-1.3); GFR > 60 ML/MIN (>=60 (CALC)); GFR FOR AFR.AMER. > 60 ML/MIN (>=60 (CALC)); POTASSIUM 3.9 mmol/l (3.5-5.1); SGOT/AST 27 u/l (17-59); SODIUM 141 mmol/l (137-146)
[2021-10-15 21:50] LABS: BILIRUBIN, TOTAL 0.2 mg/dL (0.0-1.4); TOTAL PROTEIN 7.2 g/dL (6.3-8.2)
[2021-10-15 21:59] LABS: MYOGLOBIN 165 ng/mL (0 - 121)
[2021-10-15 23:01] LABS: URINE BILIRUBIN - DIPSTICK NEGATIVE (NEGATIVE); URINE BLOOD DIPSTICK TRACE-INTACT (NEGATIVE); URINE COLOR YELLOW; URINE GLUCOSE - DIPSTICK NEGATIVE (NEGATIVE); URINE KETONE NEGATIVE (NEGATIVE); URINE LEUK ESTERASE NEGATIVE (NEGATIVE); URINE PROTEIN - DIPSTICK NEGATIVE (NEG-TRACE); URINE SPECIFIC GRAVITY <=1.005; URINE UROBILINOGEN - DIPSTICK 0.2 E.U./dL (0.2)
[2021-10-15 23:05] LABS: URINE NITRITE - DIPSTICK NEGATIVE (Negative)
[2021-10-15] MEDS ORDERED: CIPROFLOXACN500 MG PO (23:12)
[2021-10-15] MEDS ORDERED: ROBITUSSIN AC10 ML PO (23:19)
[2021-10-16 00:03] VITALS: BP 115/70
== END 2021-10-16 00:02 | disposition home or self-care (01) ==
LOC: ED 20:32
PROVIDERS: Emergency Medicine
DX: J44.9 Chronic obstructive pulmonary disease, unspecified (principal); I10 Essential (primary) hypertension; E11.9 Type 2 diabetes mellitus without complications; K21.9 Gastro-esophageal reflux disease without esophagitis; F17.200 Nicotine dependence, unspecified, uncomplicated; Z20.822 Contact with and (suspected) exposure to COVID-19
CPT/HCPCS: J1956

== ENCOUNTER 2021-11-23 18:28 | Emergency (ER) | payer MEDICARE, MEDICAID ==
[~2021-11-23] VITALS: Ht 180.3 cm; Wt 95.2 kg
[~2021-11-23 18:28] MED LIST changes: +ROBITUSSIN AC10 ML PO
[2021-11-23 18:35] VITALS: BP 122/83
[2021-11-23 19:00] VITALS: BP 112/70
[2021-11-23] MEDS ORDERED: CYCLOBENZAPRINE10 MG PO (19:05)
[2021-11-23 19:30] VITALS: BP 113/79
[2021-11-23] MEDS ORDERED: NAPROXEN500 MG PO (19:54)
[2021-11-23] MEDS ORDERED: VIBRAMYCIN100 M2 PO (19:54)
[2021-11-23 20:01] VITALS: BP 112/69
[2021-11-23 20:05] VITALS: BP 112/69
== END 2021-11-23 20:22 | disposition home or self-care (01) ==
LOC: ED 18:28
DX: M79.622 Pain in left upper arm (principal); M79.89 Other specified soft tissue disorders; I10 Essential (primary) hypertension; E11.9 Type 2 diabetes mellitus without complications; J44.9 Chronic obstructive pulmonary disease, unspecified; K21.9 Gastro-esophageal reflux disease without esophagitis; F17.200 Nicotine dependence, unspecified, uncomplicated

== ENCOUNTER 2022-05-22 21:38 | Emergency (ER) | payer MEDICARE, MEDICAID ==
[~2022-05-22] VITALS: Ht 177.8 cm; Wt 90.0 kg
[~2022-05-22 21:38] MED LIST changes: +DOXYCYCLINE100 MG; +NAPROXEN500 MG PO; +VIBRAMYCIN100 M2 PO
[2022-05-22 23:02] VITALS: BP 128/83
[2022-05-22] MEDS ORDERED: PROCTOZONE-HC2.5 % RE (23:07)
[2022-05-22 23:15] VITALS: BP 124/80
[2022-05-22 23:24] VITALS: BP 124/80
== END 2022-05-22 23:40 | disposition home or self-care (01) ==
LOC: ED 21:38
DX: K64.4 Residual hemorrhoidal skin tags (principal); I10 Essential (primary) hypertension; E11.9 Type 2 diabetes mellitus without complications; J44.9 Chronic obstructive pulmonary disease, unspecified; K21.9 Gastro-esophageal reflux disease without esophagitis; F17.200 Nicotine dependence, unspecified, uncomplicated

== ENCOUNTER 2022-06-30 12:49 | Emergency (ER) | payer MEDICARE, MEDICAID ==
[~2022-06-30] VITALS: Ht 177.8 cm; Wt 90.7 kg
[2022-06-30] VITALS (16 sets, daily range): BP systolic 115–138; BP diastolic 70–83
[~2022-06-30 12:49] MED LIST changes: +PROCTOZONE-HC2.5 % RE
[2022-06-30 13:50] LABS: BASO% 0.8 % (0-3); EOS% 0.2 % (0-8); IMMATURE GRANULOCYTES 0.2 % (0.0-5.0); LYMPH% 5.9 % (15-41); MEAN CELL VOLUME 99.6 fL CALC (80.0-100.0); MEAN CORPUSCULAR HGB 32.5 pG CALC (26.0-32.0); MEAN CORPUSCULAR HGB CONC 32.6 g/dL CAL (32.0-36.0); MONO% 1.4 % (2-13); NEUT# 10.7 thou/uL (1.82-7.42); NEUT% 91.5 % (42-76); RED BLOOD COUNT 4.62 mill/uL (4.70-6.10); RED CELL DISTRI WIDTH 13.2 % (11.5-15.5)
[2022-06-30 14:08] LABS: PROTHROMBIN TIME 10.1 SECONDS (9.0-12.5)
[2022-06-30 14:10] LABS: ALBUMIN 4.3 g/dL (3.2-5.0); ALKALINE PHOSPHATASE 97 u/l (38-126); BUN 16 mg/dL (9-20); BUN/CREATININE RATIO 10 (12-20 (CALC)); CARBON DIOXIDE 26 mmol/l (22-30); CHLORIDE 107 mmol/l (95-108); CREATININE 1.6 mg/dL (0.7-1.3); GFR FOR AFR.AMER. 54 ML/MIN (>=60 (CALC)); GFR OTHER RACES 45 ML/MIN (>=60 (CALC)); SGOT/AST 32 u/l (17-59); SODIUM 139 mmol/l (137-146); TOTAL PROTEIN 6.9 g/dL (6.3-8.2)
[2022-06-30 14:13] LABS: ANION GAP 10 (6-22 (CALC)); BILIRUBIN, TOTAL 0.3 mg/dL (0.2-1.3); POTASSIUM 4.2 mmol/l (3.5-5.1)
[2022-06-30] MEDS ORDERED: DECADRON4 MG PO (15:31)
[2022-06-30] MEDS ORDERED: PROAIR RES108 MCG/AC PO (15:31)
[2022-06-30] MEDS ORDERED: DOXYCYCLINE100 MG PO (15:47)
== END 2022-06-30 16:06 | disposition home or self-care (01) ==
LOC: ED 12:49
PROVIDERS: Emergency Medicine; Nurse Practitioner
DX: J44.1 Chronic obstructive pulmonary disease with (acute) exacerbation (principal); I10 Essential (primary) hypertension; E11.9 Type 2 diabetes mellitus without complications; K21.9 Gastro-esophageal reflux disease without esophagitis; F17.200 Nicotine dependence, unspecified, uncomplicated

== ENCOUNTER 2023-01-27 22:33 | Emergency (ER) | payer MEDICARE, MEDICAID ==
[~2023-01-27] VITALS: Ht 177.8 cm; Wt 78.0 kg
[~2023-01-27 22:33] MED LIST changes: +AZELASTINE HCL0.1 % NS; +DECADRON4 MG PO; +DOXYCYCLINE100 MG PO; +PROAIR RES108 MCG/AC PO; +TUCKS TOP; +TYLENOL 8 HOUR650 MG PO
[2023-01-27 23:01] VITALS: BP 120/82
[2023-01-27 23:15] VITALS: BP 128/68
[2023-01-27 23:30] VITALS: BP 126/77
[2023-01-27 23:45] VITALS: BP 120/76
[2023-01-27 23:51] LABS: BASO% 0.9 % (0-3); EOS% 4.7 % (0-8); HEMATOCRIT 44.7 % (39.0-50.0); HEMOGLOBIN 14.2 g/dl (14.0-18.0); IMMATURE GRANULOCYTES 0.4 % (0.0-5.0); LYMPH% 28.2 % (15-41); MEAN CELL VOLUME 102.1 fL CALC (80.0-100.0); MEAN CORPUSCULAR HGB 32.4 pG CALC (26.0-32.0); MEAN CORPUSCULAR HGB CONC 31.8 g/dL CAL (32.0-36.0); MONO% 6.3 % (2-13); NEUT# 6.54 thou/uL (1.82-7.42); NEUT% 59.5 % (42-76); RED BLOOD COUNT 4.38 mill/uL (4.70-6.10); RED CELL DISTRI WIDTH 12.4 % (11.5-15.5)
[2023-01-28] VITALS: BP 126/78
[2023-01-28 00:03] LABS: ANION GAP 11 (6-22 (CALC)); BUN 18 mg/dL (9-20); BUN/CREATININE RATIO 15 (12-20 (CALC)); CARBON DIOXIDE 25 mmol/l (22-30); CHLORIDE 109 mmol/l (95-108); CREATININE 1.2 mg/dL (0.7-1.3); GFR FOR AFR.AMER. > 60 ML/MIN (>=60 (CALC)); GFR OTHER RACES > 60 ML/MIN (>=60 (CALC)); POTASSIUM 3.7 mmol/l (3.5-5.1); SODIUM 142 mmol/l (137-146)
[2023-01-28 00:15] VITALS: BP 120/80
[2023-01-28] MEDS ORDERED: BACTRIM DS1 TAB PO (00:16)
[2023-01-28 00:25] VITALS: BP 120/80
== END 2023-01-28 00:33 | disposition home or self-care (01) ==
LOC: ED 22:33
PROVIDERS: Family Medicine
DX: L03.116 Cellulitis of left lower limb (principal); S91.312A Laceration without foreign body, left foot, initial encounter; I10 Essential (primary) hypertension; E11.9 Type 2 diabetes mellitus without complications; J44.9 Chronic obstructive pulmonary disease, unspecified; W20.8XXA Other cause of strike by thrown, projected or falling object, initial encounter; Y93.E1 Activity, personal bathing and showering; Y92.002 Bathroom of unspecified non-institutional (private) residence as the place of occurrence of the external cause

== ENCOUNTER 2023-06-25 09:29 | Emergency (ER) | payer MEDICARE ==
[~2023-06-25] VITALS: Ht 177.8 cm; Wt 90.4 kg
[2023-06-25 09:44] VITALS: BP 129/77
[2023-06-25 09:45] VITALS: BP 140/82
[2023-06-25 10:00] VITALS: BP 125/78
[2023-06-25] MEDS ORDERED: ANUCORT-HC25 M1 RE (10:15)
[2023-06-25] MEDS ORDERED: PROCTO-MED HC2.5 % TOP (10:15)
[2023-06-25 10:16] VITALS: BP 120/75
[2023-06-25 10:26] VITALS: BP 120/75
== END 2023-06-25 10:31 | disposition home or self-care (01) ==
LOC: ED 09:29
DX: K64.9 Unspecified hemorrhoids (principal); I10 Essential (primary) hypertension; J44.9 Chronic obstructive pulmonary disease, unspecified

== ENCOUNTER 2024-07-08 23:59 | Emergency (ER) | payer MEDICARE, MEDICAID ==
[~2024-07-08] VITALS: Ht 177.8 cm; Wt 95.3 kg
[~2024-07-08 23:59] MED LIST changes: +ANUCORT-HC25 M1 RE; +PROCTO-MED HC2.5 % TOP
[2024-07-09] MEDS ORDERED: ALBUTEROL SULFATE 2.5 MG VIAL IN ONE (00:10)
[2024-07-09 00:30] VITALS: BP 117/71
[2024-07-09 00:31] LABS: BASO% 0.8 % (0-3); EOS% 5.5 % (0-8); HEMOGLOBIN 15.3 g/dl (14.0-18.0); IMMATURE GRANULOCYTES 0.9 % (0.0-5.0); LYMPH% 37.4 % (15-41); MEAN CELL VOLUME 103.4 fL CALC (80.0-100.0); MEAN CORPUSCULAR HGB 32.3 pG CALC (26.0-32.0); MEAN CORPUSCULAR HGB CONC 31.2 g/dL CAL (32.0-36.0); MONO% 5.2 % (2-13); NEUT# 4.5 thou/uL (1.82-7.42); NEUT% 50.2 % (42-76); RED BLOOD COUNT 4.74 mill/uL (4.70-6.10); RED CELL DISTRI WIDTH 12.8 % (11.5-15.5)
[2024-07-09 00:35] LABS: ALBUMIN 4.3 g/dL (3.2-5.0); CREATININE 1.3 mg/dL (0.7-1.3); POTASSIUM 3.8 mmol/l (3.5-5.1)
[2024-07-09 00:38] LABS: BILIRUBIN, TOTAL 0.6 mg/dL (0.2-1.3)
[2024-07-09 01:00] VITALS: BP 109/68
[2024-07-09] MEDS ORDERED: ZPAK PO (01:23)
[2024-07-09] MEDS ORDERED: VANTIN200 M1 PO (01:23)
[2024-07-09] MEDS ORDERED: AZITHROMYCIN 500 MG in SODIUM CHLORIDE 0.9% 250 ML IV ONE (01:25)
[2024-07-09 01:30] VITALS: BP 113/65
[2024-07-09] MEDS ORDERED: Cefdinir 300 MG/CAP PO ONE (01:30)
[2024-07-09] MEDS ORDERED: AZITHROMYCIN 250 MG/TAB PO ONE (01:30)
[2024-07-09 01:36] VITALS: BP 113/65
== END 2024-07-09 01:36 | disposition home or self-care (01) ==
LOC: ED 23:59
PROVIDERS: Family Medicine
DX: J44.1 Chronic obstructive pulmonary disease with (acute) exacerbation (principal); J18.9 Pneumonia, unspecified organism; J44.0 Chronic obstructive pulmonary disease with (acute) lower respiratory infection; I10 Essential (primary) hypertension; K21.9 Gastro-esophageal reflux disease without esophagitis; Z20.822 Contact with and (suspected) exposure to COVID-19

== ENCOUNTER 2024-08-06 08:41 | Emergency (ER) | payer MEDICARE, MEDICAID ==
[~2024-08-06] VITALS: Ht 177.8 cm; Wt 91.0 kg
[~2024-08-06 08:41] MED LIST changes: +VANTIN200 M1 PO
[2024-08-06] MEDS ORDERED: cefTRIAXone SODIUM 2 GM in SODIUM CHLORIDE 0.9% 100 ML IV ONE (09:20)
[2024-08-06] MEDS ORDERED: AZITHROMYCIN 250 MG/TAB PO ONE (09:20)
[2024-08-06] MEDS ORDERED: IPRATROPIUM-Albuterol 0.5MG-2.5MG/3 ML NEB ONE ×2 (09:20)
[2024-08-06] MEDS ORDERED: methylPREDNISolone SODIUM SUCC 125 MG/2 ML SDV IV ONE (09:20)
[2024-08-06 10:05] LABS: ALBUMIN 4.2 g/dL (3.2-5.0); ALKALINE PHOSPHATASE 80 u/l (38-126); ANION GAP 14 (6-22 (CALC)); BILIRUBIN, TOTAL 0.7 mg/dL (0.2-1.3); BUN 13 mg/dL (9-20); BUN/CREATININE RATIO 10 (12-20 (CALC)); CARBON DIOXIDE 23 mmol/l (22-30); CHLORIDE 108 mmol/l (95-108); CREATININE 1.3 mg/dL (0.7-1.3); EOS% 4.3 % (0-8); ESTIMATED GFR 63 ML/MIN (>=90 (CALC)); HEMATOCRIT 53.5 % (39.0-50.0); HEMOGLOBIN 16.6 g/dl (14.0-18.0); IMMATURE GRANULOCYTES 0.3 % (0.0-5.0); LYMPH% 25.4 % (15-41); MEAN CELL VOLUME 105.7 fL CALC (80.0-100.0); MEAN CORPUSCULAR HGB 32.8 pG CALC (26.0-32.0); MONO% 4.1 % (2-13); NEUT# 4.39 thou/uL (1.82-7.42); NEUT% 64.9 % (42-76); POTASSIUM 4.3 mmol/l (3.5-5.1); RED BLOOD COUNT 5.06 mill/uL (4.70-6.10); SGOT/AST 41 u/l (17-59); SODIUM 141 mmol/l (137-146)
[2024-08-06] MEDS ORDERED: DOXYCYC MONO100 M3 PO (11:38)
[2024-08-06 11:42] VITALS: BP 137/84
== END 2024-08-06 11:55 | disposition home or self-care (01) ==
LOC: ED 08:41
PROVIDERS: Family Medicine
DX: J44.1 Chronic obstructive pulmonary disease with (acute) exacerbation (principal); I10 Essential (primary) hypertension; Z87.891 Personal history of nicotine dependence; Z20.822 Contact with and (suspected) exposure to COVID-19
CPT/HCPCS: J0696